=== PATIENT | female | born 1935 | race Caucasian/White ===

== ENCOUNTER → 2016-11-11 | Outpatient (CLI) | payer MEDICARE, BC ==
--- NOTE | 2016-11-11 13:28 | XR ---
EXAMINATION TYPE: XR foot complete RT DATE OF EXAM: 11/11/2016 1:22 PM COMPARISON: NONE HISTORY: Swelling right first toe TECHNIQUE: 3 views are submitted. FINDINGS: Soft tissue swelling is seen overlying the first digit. There is subluxation of the distal phalanx re lative to the proximal phalanx first digit with erosive changes. Findings suspicious for osteomyeliti s. Hammertoe deformities are seen. Areas of cortical thickening involving the second metatarsal are seen . Distal phalanx are difficult to assess due to patient positioning. Calcaneal spurs are noted. IMPRESSION: 1. Subluxation distal phalanx first digit with irregularity involving the articular surface. Correlat e for osteomyelitis.
== END | disposition home or self-care (01) ==
LOC: RADXRMAIN 12:55
PROVIDERS: ATTEND Podiatrist Foot Surgery
DX: S93.101A Unspecified subluxation of right toe(s), initial encounter (principal)

== ENCOUNTER → 2016-12-03 | Outpatient (CLI) | payer MEDICARE, BC ==
--- NOTE | 2016-12-03 20:42 | PN ---
DATE OF SERVICE: 12/03/2016 This patient is a 81-year-old lady who has been followed in the sleep center for treatment of moderate obstructive sleep apnea/hypopnea/hypopnea syndrome. Patient continues to use her CPAP equipment every night for the whole night. Recently she has been told by her daughter that even if she is using her CPAP equipment, she has snoring. Recently in May of 2016 patient had a stroke with changes in her speech. I checked the patient's CPAP unit. It showed that the patient is using equipment practically 100% of the time for more than 4 hours. CPAP pressure is 9 cm of water. Patient's weight has increased from 224 pounds to 240 pounds since her previous CPAP titration. Patient also had episodes of atrial fibrillation which have been converted to normal sinus rhythm. MEDICATIONS: 1. Neurontin. 2. Cozaar. 3. Atenolol. 4. Eliquis. 5. Cymbalta. 6. Clarinex. 7. Metformin. 8. Lipitor. 9. Xanax. 10. Pravastatin. PHYSICAL EXAMINATION: The patient is in no distress. VITAL SIGNS: BP 132/80, HR 92, RR 16. Height 5 feet 6 inches. Weight 240. BMI 38.7. Temperature 97.8. Oxygen saturation at room air 96%. HEENT: PERRLA, EOMI. Evaluation of oropharynx showed tongue protrudes midline; extremely low position of soft palate. NECK: Supple. No JVD. Thyroid is not palpable. LUNGS: Clear to percussion and to auscultation. Good air exchange. No wheezing or rhonchi. HEART: S1, S2 regular. ABDOMEN: Soft and nontender. Bowel sounds are present. No organomegaly appreciated. EXTREMITIES: No clubbing or cyanosis. AUTO COLLISION REPAIR INSTRUCTOR: Awake, alert, and oriented x3. Cranial nerves 2 to 7 intact. There is no fasciculation or atrophy noted. No focal deficits observed. IMPRESSION: 1. Obstructive sleep apnea-hypopnea syndrome. Patient demonstrated 100% compliance with treatment but has snoring with CPAP, according to the family. [place] Sleepiness Scale increased to 13. 2. Obesity; body mass index 38.7. Patient's weight has increased by 16 pounds since previous titration. 3. History of stroke in May 2016 with changes of the speech; practically no residual deficit. 4. Hypertension. 5. History of paroxysmal atrial fibrillation episodes which are considered to be the reason for the stroke. 6. Hyperlipidemia. 7. History of sinusitis. 8. Status post bilateral knee replacement. 9. Diabetes mellitus. 10. Acid reflux. 11. Anxiety. PLAN: 1. We will repeat CPAP titration for re-evaluation of effective CPAP pressure at the present time. 2. Losing weight. 3. Sleep hygiene with regular time in bed for at least 8 hours. 4. No driving if feeling any sleepiness. 5. Prescription for all necessary CPAP supplies. Sincerely, Geo Haney MD, PhD, FAASM. Diplomat of [place], Sleep Medicine Board by [place], [place] [employer]
== END | disposition home or self-care (01) ==
LOC: SLEEP 15:29
PROVIDERS: ATTEND Internal Medicine
DX: G47.33 Obstructive sleep apnea (adult) (pediatric) (principal); E66.9 Obesity, unspecified; Z68.38 Body mass index [BMI] 38.0-38.9, adult; I69.398 Other sequelae of cerebral infarction; I10 Essential (primary) hypertension; R47.89 Other speech disturbances; E78.5 Hyperlipidemia, unspecified; Z87.898 Personal history of other specified conditions; E11.9 Type 2 diabetes mellitus without complications; K21.9 Gastro-esophageal reflux disease without esophagitis; F41.9 Anxiety disorder, unspecified; Z79.899 Other long term (current) drug therapy; Z96.653 Presence of artificial knee joint, bilateral; Z79.84 Long term (current) use of oral hypoglycemic drugs; Z79.01 Long term (current) use of anticoagulants

== ENCOUNTER → 2016-12-30 | Outpatient (CLI) | payer MEDICARE, BC ==
[2016-12-30 12:50] LABS: Cholesterol 243 mg/dL (<200); HDL Cholesterol 46 mg/dL (40-60); Triglycerides 316 mg/dL (<150)
[2016-12-30 16:01] LABS: Hemoglobin A1C 7.3 % (4.2-6.1)
== END | disposition home or self-care (01) ==
LOC: LABWHC1 11:49
PROVIDERS: ATTEND Psychiatry & Neurology Pain Medicine
DX: G45.9 Transient cerebral ischemic attack, unspecified (principal); Z79.891 Long term (current) use of opiate analgesic
CPT/HCPCS: 36415; 80061; 83036

== ENCOUNTER → 2017-03-18 | Outpatient (CLI) | payer MEDICARE, BC ==
--- NOTE | 2017-03-19 14:17 | PN ---
DATE OF SERVICE: 03/18/2017 An 82-year-old lady who has been followed in the Sleep Center for treatment of obstructive sleep apnea-hypopnea syndrome. Recently, patient had CPAP titration and I discussed also the test with her. She received new CPAP unit and using it successfully without significant problem. She reported that with the heated tube she feels better in her nose. I checked CPAP unit. CPAP pressure is 10 cm of water. No significant leak, 12 L/min. Apnea-hypopnea index rating from the ( ) 0.9 only. Usage is 30/30 nights for more than 4 hours, average 8.6 hours. MEDICATIONS: Eliquis, Cozaar, metformin, Neurontin, Cymbalta, Prevacid. During physical exam, patient in no distress. BP 131/82, HR 95, RR 18, weight 240.4, temp 97.6. OROPHARYNX: Extremely low position of soft palate. HEART: S1, S2, irregular. ABDOMEN: Obese. NECK: Supple. No JVD. Thyroid is not palpable. LUNGS: Clear to percussion and to auscultation. Good air exchange. No wheezing or rhonchi. EXTREMITIES: No clubbing or cyanosis. SALES REPRESENTATIVE PRINTING SUPPLIES: Awake, alert and oriented x3. Cranial nerves 2 to 7 intact. There is no fasciculation or atrophy noted. No focal deficits observed. IMPRESSION: 1. Obstructive sleep apnea-hypopnea syndrome, on control with CPAP at 10 cm of water. 2. Atrial fibrillation. 3. Diabetes mellitus. 4. Hypertension. 5. Hyperlipidemia. 6. History of sinusitis. 7. Status post bilateral knee replacement. 8. Periodic limb movements during titration. 9. History of ( ) disorder, no significant out of dream movements at the present time. PLAN: 1. Continue treatment with CPAP every night. 2. Losing weight. 3. Sleep hygiene with regular time in bed for at least 8 hours. 4. No driving if feeling any sleepiness. 5. Prescription for all necessary CPAP supplies. 6. Follow up visit in 10 months. Thank you very much for allowing me to participate in the management of your patient. Sincerely, Geo Haney MD, PhD, FAASM Diplomat of [employer] Sleep Medicine Board by [employer] Medicine Information Systems Supervisor of [facility]
== END | disposition home or self-care (01) ==
LOC: SLEEP 14:19
PROVIDERS: ATTEND Internal Medicine
DX: G47.33 Obstructive sleep apnea (adult) (pediatric) (principal); I48.91 Unspecified atrial fibrillation; E11.9 Type 2 diabetes mellitus without complications; I10 Essential (primary) hypertension; E78.5 Hyperlipidemia, unspecified; G47.61 Periodic limb movement disorder

== ENCOUNTER → 2017-12-31 | Outpatient (CLI) | payer MEDICARE, BC | END | disposition home or self-care (01) | LOC: RADECHMAIN 15:01 | PROVIDERS: ATTEND Internal Medicine | DX: I48.91 Unspecified atrial fibrillation (principal) | CPT/HCPCS: 93225; 93226 ==

== ENCOUNTER 2018-01-11 11:58 | Day surgery (SDC) | payer MEDICARE, BC ==
[2018-01-07 09:25] VITALS: BMI 36.7
[~2018-01-11 11:58] MED LIST: LACTATED RINGERS 1,000 ML IV SCH; LIDOCAINE 1% 20 ML VIAL (10MG/ML) FOR IV START INTRADERMA PRN
[2018-01-11] MEDS: PHENYLEPHRINE 10% OPHTH DROPS 5 ML BTL OP ONE ×3 (13:25→13:43)
[2018-01-11] MEDS: CYCLOPENTOLATE 1% OPHTH SOLN 2 ML BTL OP ONE ×3 (13:28→13:46)
[2018-01-11] MEDS: FLURBIPROFEN 0.03% OPHTH DROPS 2.5 ML BTL OP ONE ×3 (13:31→13:49)
[2018-01-11 13:41] LABS: Glucose,Whole Blood 136 mg/dL (75-99)
[2018-01-11] MEDS ORDERED: LIDOCAINE 1% 20 ML VIAL (10MG/ML) FOR IV START INTRADERMA ONE (13:45)
[2018-01-11 13:46] VITALS: TEMP 97.8
[2018-01-11] MEDS ORDERED: LIDOCAINE 1% INJ 10MG/ML (20 ML MDV) ONE (14:19)
[2018-01-11] MEDS ORDERED: PROPOFOL 10 MG/ML 20 ML VIAL IV ONE (14:19)
[2018-01-11] MEDS ORDERED: HYALURONATE SODIUM INTRAOCULAR 1 EACH SYRINGE (10MG/ML) INTRAOCULA ONE (14:20)
[2018-01-11] MEDS ORDERED: BALANCED SALT IRRIG SOLN COMB2 15 ML IRRIG.SOLN IRRIGATION ONE (14:20)
[2018-01-11] MEDS ORDERED: EPINEPHrine (PF) 0.5 ML in BALANCED SALT IRRIG SOLN COMB2 500 ML IRRIGATION ONE (14:22)
--- NOTE | 2018-01-11 14:40 | P.OP ---
Date of Procedure: 01/11/18 Procedure(s) Performed: PREOPERATIVE DIAGNOSIS: Cataract, right eye. POSTOPERATIVE DIAGNOSIS: Cataract, right eye. OPERATION: Phacoemulsification cataract, right eye. DESCRIPTION OF PROCEDURE: The patient was taken to the preoperative holding area. Intravenous Propofol was given so as to bring about adequate sedation. The following mixture was given for local anesthesia: 5 mL of 2% lidocaine, 5 mL of 0.75% Marcaine, and 1 mL of Wydase. Approximately 4 mL was injected in the retrobulbar space of the surgical eye. Additional 1 mL was then directed to the temporal area of the surgical eye. This was performed to allow adequate neurological block of the facial muscles. The patient was revived and then taken into the operative room. The patient was prepped and draped in the usual sterile manner for the operative eye. A lid speculum was put into position. The conjunctiva was resected back from the limbus in the 12 o'clock position. Bleeding was controlled with electrocautery. A #69 blade was then used and a half-thickness scleral incision approximately 1-mm posterior to the limbus was made on bare sclera. This was shelved in the clear cornea using a crescent knife. Next a 15-degree blade was used to make a stab incision at the 3 o' clock position at the corneolimbal interface. Keratome blade was then used and the superior wound was extended into the anterior chamber. Viscoelastic was injected into the anterior chamber and to maintain its form. Next, a cystotome was used and a continuous anterior capsulotomy was made without difficulty. Hydrodissection using a blunt cannula and BSS was performed. Phaco probe was then employed and a groove extending from 12 to 6 o'clock in the lens was created. A James wand was used through the stab incision so as to perform a divide and conquer technique. Next an irrigation aspiration probe was utilized and any residual cortex was removed from the eye. Again, viscoelastic was injected into the anterior chamber. An Hubert posterior chamber lens implant was placed in the cartridge and injected into the anterior chamber without difficulty. The Jifiti.comey hook was utilized to spin the lens into position and this was again performed without any difficulty. The irrigation and aspiration probe was again employed and any residual viscoelastic was removed from the eye. Then BSS was injected into the limbal stab incision and the anterior chamber re-inflated. The conjunctiva was reapproximated using electrocautery. One drop of 0.25% Timoptic was placed over the corneal along with TobraDex ophthalmic ointment. Two sterile patches and a Cuevas eye shield were taped into position. The patient was transported to the recovery room in stable condition. Pathology: none sent Condition: stable Disposition: same day
[2018-01-11 15:17] LABS: Glucose,Whole Blood 115 mg/dL (75-99)
[2018-01-11 15:43] VITALS: BP 122/64; PULSE 44; RESP 16
[2018-01-11] MEDS ORDERED: GENTAMICIN/PREDNISOL AC OPHTH OINT 3.5GM OPHTHALMIC ONE (23:00)
[2018-01-11] MEDS ORDERED: BUPIVACAINE (PF) 0.75% 5 ML, HYALURONIDASE, HUMAN RECOMB 150 UNIT, LIDOCAINE 2% (PF) 10... MISCELLANE ONE ×3 (23:00)
[2018-01-11] MEDS ORDERED: TIMOLOL 0.5% OPHTH DROPS 5 ML BTL OP ONE (23:00)
== END 2018-01-11 15:56 | disposition home or self-care (01) ==
LOC: OR 11:58
PROVIDERS: ATTEND Ophthalmology
DX: E11.36 Type 2 diabetes mellitus with diabetic cataract (principal); Z79.84 Long term (current) use of oral hypoglycemic drugs; H04.129 Dry eye syndrome of unspecified lacrimal gland; I48.91 Unspecified atrial fibrillation; Z79.01 Long term (current) use of anticoagulants; E78.5 Hyperlipidemia, unspecified; I34.1 Nonrheumatic mitral (valve) prolapse; K21.9 Gastro-esophageal reflux disease without esophagitis; M19.90 Unspecified osteoarthritis, unspecified site; G47.33 Obstructive sleep apnea (adult) (pediatric); Z99.89 Dependence on other enabling machines and devices; Z86.73 Personal history of transient ischemic attack (TIA), and cerebral infarction without residual deficits; Z79.899 Other long term (current) drug therapy
CPT/HCPCS: 66984; V2632; J3470; J2001 ×2; J0171; J2704

== ENCOUNTER 2018-02-08 09:01 | Day surgery (SDC) | payer MEDICARE, BC ==
[2018-02-02 09:46] VITALS: BMI 36.7
[~2018-02-08 09:01] MED LIST changes: +MIDAZOLAM 2 MG/2 ML VIAL IV PRN
[2018-02-08] MEDS: PHENYLEPHRINE 10% OPHTH DROPS 5 ML BTL OP ONE ×3 (11:30→11:36)
[2018-02-08] MEDS: CYCLOPENTOLATE 1% OPHTH SOLN 2 ML BTL OP ONE ×3 (11:39→11:45)
[2018-02-08] MEDS: FLURBIPROFEN 0.03% OPHTH DROPS 2.5 ML BTL OP ONE ×3 (11:48→11:54)
[2018-02-08 11:53] VITALS: RESP 16; TEMP 97.7
[2018-02-08 12:10] LABS: Glucose,Whole Blood 143 mg/dL (75-99)
[2018-02-08] MEDS ORDERED: BALANCED SALT IRRIG SOLN COMB2 15 ML IRRIG.SOLN IRRIGATION ONE (12:20)
[2018-02-08] MEDS ORDERED: HYALURONATE SODIUM INTRAOCULAR 1 EACH SYRINGE (10MG/ML) INTRAOCULA ONE (12:20)
[2018-02-08] MEDS ORDERED: PROPOFOL 10 MG/ML 20 ML VIAL IV ONE (12:23)
--- NOTE | 2018-02-08 12:47 | P.OP ---
Date of Procedure: 02/08/18 Procedure(s) Performed: PREOPERATIVE DIAGNOSIS: Cataract, left eye. POSTOPERATIVE DIAGNOSIS: Cataract, left eye. OPERATION: Phacoemulsification cataract, left eye. DESCRIPTION OF PROCEDURE: The patient was taken to the preoperative holding area. Intravenous Propofol was given so as to bring about adequate sedation. The following mixture was given for local anesthesia: 5 mL of 2% lidocaine, 5 mL of 0.75% Marcaine, and 1 mL of Wydase. Approximately 4 mL was injected in the retrobulbar space of the surgical eye. Additional 1 mL was then directed to the temporal area of the surgical eye. This was performed to allow adequate neurological block of the facial muscles. The patient was revived and then taken into the operative room. The patient was prepped and draped in the usual sterile manner for the operative eye. A lid speculum was put into position. The conjunctiva was resected back from the limbus in the 12 o'clock position. Bleeding was controlled with electrocautery. A #69 blade was then used and a half-thickness scleral incision approximately 1-mm posterior to the limbus was made on bare sclera. This was shelved in the clear cornea using a crescent knife. Next a 15-degree blade was used to make a stab incision at the 3 o' clock position at the corneolimbal interface. Keratome blade was then used and the superior wound was extended into the anterior chamber. Viscoelastic was injected into the anterior chamber and to maintain its form. Next, a cystotome was used and a continuous anterior capsulotomy was made without difficulty. Hydrodissection using a blunt cannula and BSS was performed. Phaco probe was then employed and a groove extending from 12 to 6 o'clock in the lens was created. A James wand was used through the stab incision so as to perform a divide and conquer technique. Next an irrigation aspiration probe was utilized and any residual cortex was removed from the eye. Again, viscoelastic was injected into the anterior chamber. An Hubert posterior chamber lens implant was placed in the cartridge and injected into the anterior chamber without difficulty. The SinServis1st Bankey hook was utilized to spin the lens into position and this was again performed without any difficulty. The irrigation and aspiration probe was again employed and any residual viscoelastic was removed from the eye. Then BSS was injected into the limbal stab incision and the anterior chamber re-inflated. The conjunctiva was reapproximated using electrocautery. One drop of 0.25% Timoptic was placed over the corneal along with TobraDex ophthalmic ointment. Two sterile patches and a Cuevas eye shield were taped into position. The patient was transported to the recovery room in stable condition. Pathology: none sent Condition: stable Disposition: same day
[2018-02-08 13:25] VITALS: BP 131/65; PULSE 67
[2018-02-08] MEDS ORDERED: TIMOLOL 0.5% OPHTH DROPS 5 ML BTL OP ONE (23:00)
[2018-02-08] MEDS ORDERED: GENTAMICIN/PREDNISOL AC OPHTH OINT 3.5GM OPHTHALMIC ONE (23:00)
[2018-02-08] MEDS ORDERED: BUPIVACAINE (PF) 0.75% 5 ML, HYALURONIDASE, HUMAN RECOMB 150 UNIT, LIDOCAINE 2% (PF) 10... MISCELLANE ONE ×3 (23:00)
== END 2018-02-08 13:27 | disposition home or self-care (01) ==
LOC: OR 09:01
PROVIDERS: ATTEND Ophthalmology
DX: E11.36 Type 2 diabetes mellitus with diabetic cataract (principal); H04.129 Dry eye syndrome of unspecified lacrimal gland; Z79.84 Long term (current) use of oral hypoglycemic drugs; M19.90 Unspecified osteoarthritis, unspecified site; I10 Essential (primary) hypertension; E78.5 Hyperlipidemia, unspecified; I48.91 Unspecified atrial fibrillation; Z79.01 Long term (current) use of anticoagulants; I34.1 Nonrheumatic mitral (valve) prolapse; G47.33 Obstructive sleep apnea (adult) (pediatric); Z99.89 Dependence on other enabling machines and devices; Z79.899 Other long term (current) drug therapy; Z88.5 Allergy status to narcotic agent; Z88.0 Allergy status to penicillin; Z88.2 Allergy status to sulfonamides; Z88.8 Allergy status to other drugs, medicaments and biological substances
CPT/HCPCS: 66984; V2632; J3470; J2001; J2704

== ENCOUNTER → 2018-02-22 | Day surgery (SDC) | payer MEDICARE, BC ==
[2018-02-17 12:09] VITALS: BMI 36.7
[~2018-02-22] MED LIST changes: +ALPRAZolam 0.25 MG TAB PO PRN; +ALPRAZolam 0.5 MG TAB PO PRN; +ASPIRIN 325 MG TAB PO STA; +ATORVASTATIN 80 MG TAB PO STA; -LACTATED RINGERS 1,000 ML IV SCH; -LIDOCAINE 1% 20 ML VIAL (10MG/ML) FOR IV START INTRADERMA PRN; -MIDAZOLAM 2 MG/2 ML VIAL IV PRN; +NITROGLYCERIN SL TABS 0.4 MG TAB SUBLINGUAL PRN; +SODIUM CHLORIDE 0.9% 1,000 ML in EMPTY BAG 1 BAG IV ONE
[2018-02-22 08:24] VITALS: BP 131/81; PULSE 70; RESP 16
== END ==
LOC: CATHCVL 07:47
PROVIDERS: ATTEND Internal Medicine Interventional Cardiology
DX: Z53.9 Procedure and treatment not carried out, unspecified reason (principal)

== ENCOUNTER 2018-02-23 06:53 | Day surgery (SDC) | payer MEDICARE, BC ==
[~2018-02-23 06:53] MED LIST changes: -ALPRAZolam 0.25 MG TAB PO PRN; -ALPRAZolam 0.5 MG TAB PO PRN; -ATORVASTATIN 80 MG TAB PO STA; -NITROGLYCERIN SL TABS 0.4 MG TAB SUBLINGUAL PRN
[2018-02-23 07:36] VITALS: RESP 16
[2018-02-23 08:06] LABS: Calcium 9.1 mg/dL (8.4-10.2)
[2018-02-23] MEDS ORDERED: MIDAZOLAM 2 MG/2 ML VIAL ONE (09:16)
[2018-02-23] MEDS ORDERED: VERAPAMIL 2.5 MG/ML 2 ML AMP ONE (09:16)
[2018-02-23] MEDS ORDERED: HEPARIN SODIUM 1,000 UN/ML (10ML VL) ONE (09:17)
[2018-02-23] MEDS ORDERED: MIDAZOLAM 2 MG/2 ML VIAL IVP ONE (09:31)
[2018-02-23] MEDS: VERAPAMIL SYRINGE (5 MG/10 ML) INTRAARTER ONE ×2 (09:34→09:45)
[2018-02-23] MEDS ORDERED: LIDOCAINE 2% SYG (PF) 100 MG/5 ML MISCELLANE ONE (09:34)
[2018-02-23] MEDS ORDERED: HEPARIN SODIUM 1,000 UN/ML (10ML VL) IV ONE (09:35)
[2018-02-23] MEDS ORDERED: IOPAMIDOL-370 125ML BTL INJ ONE (09:45)
[2018-02-23] MEDS ORDERED: RX INFO: IV CONTRAST WAS GIVEN 1 EACH MISC MISCELLANE PRN (09:50)
[2018-02-23] MEDS ORDERED: SODIUM CHLORIDE 0.9% 1,000 ML IV SCH (10:00)
--- NOTE | 2018-02-23 11:05 | LTR ---
February 23, 2018 Re: Virgie Cerrato Dear Atif: Ms. Virgie Cerrato underwent a heart catheterization and that revealed mild nonobstructive disease involving the proximal and mid LAD. I want to thank you for allowing me to participate in her care and please do not hesitate to call if you have any question or concern. Sincerely yours, MD RASHI Cotton / IVAN: [id number] /
--- NOTE | 2018-02-23 11:05 | CC ---
CARDIAC CATHETERIZATION REPORT DATE OF SERVICE: 02/23/2018 PERFORMING PHYSICIAN: Benson Dockery MD, Head Mechanic. PROCEDURE PERFORMED: 1. Selective right and left coronary angiogram. 2. Left heart catheterization. INDICATION: This is a pleasant 83-year-old female patient who was struggling with exertional dyspnea in spite of normal noninvasive testing on her. In view of that, heart catheterization was recommended to rule out any severe underlying coronary artery disease. APPROACH: Right radial artery. COMPLICATION: None. LEVEL OF SEDATION: Moderate with a sedation length of 15 minutes. PROCEDURE DESCRIPTION: After obtaining an informed consent, the patient was brought to the Cardiac Director Law Enforcement. The right radial artery was cannulated using micropuncture technique, the micropuncture wire passed easily, then I placed a 6-Macedonian sheath in the right radial artery. After that, I did selective right and left coronary angiogram using JR4 and JL3.5 catheters. Left heart catheterization was performed using the JR4 catheter which flipped into the LV, then I did pullback across the aortic valve. The procedure was completed without any complication. SELECTIVE CORONARY ANGIOGRAM: 1. The right coronary artery is a large caliber vessel and it is a dominant vessel. The RCA is angiographically normal. It bifurcates distally into PDA and PLV branches, both are angiographically normal. 2. The left main is angiographically normal, it bifurcates into the left circumflex and left anterior descending artery. 3. The left circumflex is a large caliber vessel and it is a nondominant vessel. The proximal circumflex appeared to be angiographically normal, the mid circumflex is normal as well. It gives rise into a large OM branch which seems to be angiographically normal. The circumflex distally is angiographically normal and gives rise into a second OM branch which seems to be angiographically normal and the circumflex continued after that as very small caliber vessel in the AV groove. 4. The LAD, the proximal LAD appeared to have mild disease only. The mid LAD has also mild disease only. The LAD in the midportion gives rise into a diagonal branch which is a large caliber vessel, seems to be angiographically normal and the LAD distally appeared to be angiographically normal. HEMODYNAMICS: The left ventricular end-diastolic pressure was about 12 mmHg and no gradient was identified across the aortic valve. CONCLUSION: Mild nonobstructive coronary artery disease involving the proximal and mid LAD. POSTPROCEDURE MANAGEMENT: Maximize medical treatment and follow up with the patient. RASHI / MINDAN: [id number] /
[2018-02-23 11:45] VITALS: BMI 36.5
[2018-02-23 13:09] VITALS: TEMP 98
[2018-02-23 13:11] VITALS: BP 121/75; PULSE 64
== END 2018-02-23 16:10 | disposition home or self-care (01) ==
LOC: CATHCVL 06:53 → 3OBS 09:47 → CATHCVL 16:10
PROVIDERS: ATTEND Internal Medicine Interventional Cardiology
DX: I25.110 Atherosclerotic heart disease of native coronary artery with unstable angina pectoris (principal); I48.0 Paroxysmal atrial fibrillation; G47.33 Obstructive sleep apnea (adult) (pediatric); I10 Essential (primary) hypertension; E78.00 Pure hypercholesterolemia, unspecified; E11.9 Type 2 diabetes mellitus without complications; I38 Endocarditis, valve unspecified; Z99.89 Dependence on other enabling machines and devices; Z86.73 Personal history of transient ischemic attack (TIA), and cerebral infarction without residual deficits; Z79.01 Long term (current) use of anticoagulants; Z79.84 Long term (current) use of oral hypoglycemic drugs; Z79.899 Other long term (current) drug therapy; Z88.1 Allergy status to other antibiotic agents; Z88.0 Allergy status to penicillin; Z88.2 Allergy status to sulfonamides
CPT/HCPCS: 93458; 80048; C1894; C1769; J2250; J2001; J1644; Q9967

== ENCOUNTER → 2018-03-07 | Outpatient (CLI) | payer MEDICARE, BC | END | disposition home or self-care (01) | LOC: RADECHMAIN 12:24 | PROVIDERS: ATTEND Internal Medicine | DX: I48.91 Unspecified atrial fibrillation (principal); I48.92 Unspecified atrial flutter | CPT/HCPCS: 93270; 93271 ==

== ENCOUNTER → 2018-03-23 | Outpatient (CLI) | payer MEDICARE, BC ==
--- NOTE | 2018-03-23 14:11 | PN ---
PROGRESS NOTE DATE OF SERVICE: 03/23/2018 An 83-year-old lady who has been followed in the Sleep Center for treatment of obstructive sleep apnea-hypopnea syndrome. Patient successfully continued to use her CPAP equipment every night without significant problems. According to daughter, sometimes she has snoring. [place] Sleepiness Scale today is 9, which is in normal range. I checked CPAP unit. CPAP pressure is 10 cm of water, usage is every night, 28/30 nights more than 4 hours. Average usage is 7.4 hours. Leak is 34 L/minute. Apnea- hypopnea index 1.2 for the last month, which is normal range. MEDICATIONS: Eliquis, atenolol, Cymbalta, Neurontin, Cozaar, metformin. PHYSICAL EXAM: Patient in no distress. BP 125/74, HR 87, RR 20, height 5, 7, weight 235, BMI 36.2. Patient lost about 5 pounds of weight since last visit, temperature 98.1 oxygen saturation at room air 96%. OROPHARYNX: Extremely low position of soft palate. ABDOMEN: Slightly obese. EXTREMITIES: 1+ bilateral ankle edema. HEART: S1, S2, regular. Neck Supple, no JVD. Thyroid is not palpable. LUNGS Clear to percussion and to auscultation. Good air exchange. No wheezing or rhonchi. FLIGHT COMMUNICATIONS OPERATOR Awake, alert, and oriented X3. Cranial nerves 2 to 7 intact. There is no fasciculation or atrophy. noted. No focal deficits observed. IMPRESSION: 1. Obstructive sleep apnea-hypopnea syndrome on control with CPAP. Patient demonstrated close to 100% compliance with treatment. 2. Atrial fibrillation. 3. Diabetes mellitus. 4. Hypertension. 5. Hyperlipidemia. 6. History of sinusitis. 7. Status post bilateral knee replacement. 8. 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 Not any abnormal movements at night at the present time. 9. Status post recent basal cell carcinoma removed from the right leg. PLAN: 1. Patient will continue treatment with CPAP every night for the whole night. 2. To continue losing weight. 3. Patient should receive new mask replacement. 4. No driving if feeling any sleepiness. 5. Sleep hygiene with regular time in bed for at least 8 hours. 6. Prescription for all necessary CPAP supplies. 7. I will increase pressure to 11 cm of water with a goal to stop any snoring. Thank you very much for allowing me to participate in the management of your patient. Sincerely, Geo Haney MD, PhD, FAASM Diplomat of [place] [employer] [place] Board of Internal Medicine African Studies Professor of [facility] [place] RASHI / IVAN: [id number] /
== END | disposition home or self-care (01) ==
LOC: SLEEP 13:11
PROVIDERS: ATTEND Internal Medicine
DX: G47.33 Obstructive sleep apnea (adult) (pediatric) (principal); I48.91 Unspecified atrial fibrillation; E11.9 Type 2 diabetes mellitus without complications; I10 Essential (primary) hypertension; E78.5 Hyperlipidemia, unspecified; Z79.02 Long term (current) use of antithrombotics/antiplatelets; Z79.84 Long term (current) use of oral hypoglycemic drugs; Z79.899 Other long term (current) drug therapy; Z99.89 Dependence on other enabling machines and devices; Z96.653 Presence of artificial knee joint, bilateral; Z87.09 Personal history of other diseases of the respiratory system; Z98.890 Other specified postprocedural states; Z85.828 Personal history of other malignant neoplasm of skin

== ENCOUNTER → 2018-06-03 | Outpatient (CLI) | payer MEDICARE, BC ==
[2018-06-03 08:44] LABS: HCT 27.8 % (34.0-46.0); HGB 8.7 gm/dL (11.4-16.0); Hypochromasia Marked; MCH 23.5 pg (25.0-35.0); MCHC 31.3 g/dL (31.0-37.0); MCV 75.2 fL (80.0-100.0); Mean Platelet Volume 8.3; Microcytosis Slight; Platelet Count 238 k/uL (150-450); RDW 15.9 % (11.5-15.5); WBC 7.9 k/uL (3.8-10.6)
[2018-06-03 09:05] LABS: Potassium 5.1 mmol/L (3.5-5.1)
== END ==
LOC: LABPAT 08:23
PROVIDERS: ATTEND Internal Medicine Interventional Cardiology
DX: Z01.812 Encounter for preprocedural laboratory examination (principal); I48.0 Paroxysmal atrial fibrillation; I38 Endocarditis, valve unspecified; G47.33 Obstructive sleep apnea (adult) (pediatric)
CPT/HCPCS: 36415; 80051; 82565; 84520; 85027

== ENCOUNTER → 2018-06-16 | Day surgery (SDC) | payer MEDICARE, BC ==
[2018-06-09 13:42] VITALS: BMI 35.4
[~2018-06-16] MED LIST changes: -ASPIRIN 325 MG TAB PO STA; +IV FLUID CONTINUATION 1,000 ML IV ONE; +PROPOFOL 10 MG/ML 20 ML VIAL IV ONE; +SODIUM CHLORIDE 0.9% 1,000 ML IV SCH; -SODIUM CHLORIDE 0.9% 1,000 ML in EMPTY BAG 1 BAG IV ONE
[2018-06-16] MEDS: BENZOCAINE SPRAY 1 CAN MUCOUS MEM ONE ×2 (08:55→09:00)
[2018-06-16 09:20] LABS: Calcium 9.1 mg/dL (8.4-10.2); Potassium 4.7 mmol/L (3.5-5.1)
[2018-06-16 09:38] VITALS: RESP 16
--- NOTE | 2018-06-16 09:52 | CE ---
CARDIAC ELECTROPHYSIOLOGY REPORT DATE OF SERVICE: June 16, 2018 PERFORMING PHYSICIAN: Benson Dockery MD. PROCEDURE PERFORMED: Cardioversion. INDICATION: The patient is an 83-year-old female patient with symptomatic atrial fibrillation, who underwent a MENDEL earlier today and intracardiac thrombus was ruled out. PROCEDURE DESCRIPTION: After MENDEL was performed and intracardiac thrombus was ruled out, I attempted cardioversion. I attempted cardioversion using 200 joule, 300 joules, and 360 joules, and the patient did not cardiovert to normal sinus mechanism. CONCLUSION: Three attempts of cardioversion of atrial fibrillation to normal sinus mechanism were performed and were unsuccessful. I attempted that using 200 joules, 300 joules, and 360 joules. POSTPROCEDURE MANAGEMENT: Refer the patient to undergo atrial fibrillation ablation again. MMODL / IJN: [id number] /
--- NOTE | 2018-06-16 09:55 | ECHOT ---
TRANSESOPHAGEAL ECHOCARDIOGRAM DATE OF SERVICE: 06/16/2018 PERFORMING PHYSICIAN: Benson Dockery MD. PROCEDURE PERFORMED: Transesophageal echocardiogram. INDICATION: This is a pleasant 83-year-old female patient who was brought today for cardioversion for symptomatic atrial fibrillation. A MENDEL is to rule out any intracardiac thrombus. COMPLICATION: None. LEVEL OF SEDATION: Deep sedation was performed using a propofol with HAND MOLDER and anesthesiologist in the room. PROCEDURE DESCRIPTION: After obtaining an informed consent, explaining the procedure, benefits, risks, complications and alternatives, the patient was brought to the transesophageal echocardiogram suite. A pulse oximetry and heart rate monitors were attached to the patient prior to the procedure. The patient's throat was sprayed using lidocaine locally. Following that, the patient was turned into left lateral position. A bite guard was placed and the patient was then sedated with the above doses of Versed and fentanyl in divided doses. Following that, the transesophageal echocardiogram probe was advanced through the bite guard into the mid esophagus where 2-D echocardiogram images as well as color Doppler images of various cardiac structures were obtained. We evaluated the interatrial septum using 2-D echocardiogram, color Doppler, and contrast study. The procedure was completed. There were no complications. FINDINGS: The left ventricular dimension and systolic function appeared to be within normal limits. The EF is in the low normal actually and is about 50%. The right ventricle is dilated. The left atrium and right atrium are dilated as well. The left atrial appendage appeared to be free from any thrombus. The interatrial septum appeared to be intact without any evidence of shunt. The aortic valve is trileaflet valve without stenosis with moderate insufficiency. The mitral valve seems to be thickened as well with moderate MR. There was moderate to severe tricuspid regurgitation was seen. CONCLUSION: 1. Intact interatrial septum without any evidence of shunt. 2. Normal left atrial appendage without any evidence of thrombus. 3. Low normal left ventricular systolic function with ejection fraction around 50%. 4. Dilated right ventricle with normal function. 5. Moderate biatrial enlargement. 6. Aortic sclerosis without stenosis with moderate insufficiency. 7. Thickened mitral valve leaflets with moderate mitral regurgitation. 8. Moderate tricuspid regurgitation. 9. No evidence of pericardial effusion. MMODL / IJN: [id number] /
[2018-06-16 11:03] VITALS: TEMP 98.2
[2018-06-16 11:45] VITALS: PULSE 60
[2018-06-16 11:47] VITALS: BP 125/64
== END | disposition home or self-care (01) ==
LOC: CATHCVL 07:56
PROVIDERS: ATTEND Internal Medicine Interventional Cardiology
DX: I48.0 Paroxysmal atrial fibrillation (principal); G47.33 Obstructive sleep apnea (adult) (pediatric); I08.3 Combined rheumatic disorders of mitral, aortic and tricuspid valves; I10 Essential (primary) hypertension; E11.40 Type 2 diabetes mellitus with diabetic neuropathy, unspecified; E78.5 Hyperlipidemia, unspecified; J45.909 Unspecified asthma, uncomplicated; Z79.01 Long term (current) use of anticoagulants; Z79.899 Other long term (current) drug therapy; Z79.84 Long term (current) use of oral hypoglycemic drugs; Z88.3 Allergy status to other anti-infective agents; Z88.0 Allergy status to penicillin; Z88.2 Allergy status to sulfonamides; Z99.89 Dependence on other enabling machines and devices; Z86.73 Personal history of transient ischemic attack (TIA), and cerebral infarction without residual deficits
CPT/HCPCS: 93312; 93320; 93325; 92960; 80048; J2704

== ENCOUNTER 2018-08-24 06:38 | Day surgery (SDC) | payer MEDICARE, BC ==
[~2018-08-24 06:38] MED LIST changes: -IV FLUID CONTINUATION 1,000 ML IV ONE; +LACTATED RINGERS 1,000 ML IV SCH; +LIDOCAINE 1% 20 ML VIAL (10MG/ML) FOR IV START INTRADERMA PRN; -PROPOFOL 10 MG/ML 20 ML VIAL IV ONE; -SODIUM CHLORIDE 0.9% 1,000 ML IV SCH
[2018-08-24 07:27] VITALS: TEMP 98.1
[2018-08-24 07:29] LABS: Glucose,Whole Blood 153 mg/dL (75-99)
[2018-08-24] MEDS ORDERED: PROPOFOL 10 MG/ML 20 ML VIAL IV ONE (07:30)
--- NOTE | 2018-08-24 08:24 | P.PCN ---
Date of Procedure: 08/24/18 Procedure(s) Performed: Brief history: Patient is a pleasant 83-year-old white female, scheduled for an elective upper endoscopy as well as colonoscopy as a part of evaluation of iron deficiency anemia. She denies any abdominal pain, nausea vomiting or rectal bleeding. Iron deficiency anemia Procedure performed: Esophagogastroduodenoscopy with biopsy Colonoscopy with biopsy, snare polypectomy and tattooing with Michelle ink and Endo Clip placement Preoperative diagnosis: Anesthesia: MAC Procedure: After informed consent was obtained from the patient was brought into the endoscopy unit and IV sedation was administered by anesthesia under continuous monitoring. Initially upper endoscopy was done. The Olympus GF 160 video endoscope was inserted inserted into the mouth and esophagus intubated without any difficulty and was gradually advanced into the stomach and duodenum and carefully examined. The bulb and second part of the duodenum appeared normal. The scope was then withdrawn into the stomach adequately insufflated with air and upon careful examination the antrum and body, cardia and fundus appeared normal. The scope was then withdrawn into the esophagus. The GE junction was located at 40 cm to the incisors. It appeared regular with no erythema erosions or ulcerations. Rest of the esophagus appeared normal. Patient tolerated the procedure well. At this time the patient continued to remain sedation. Initial digital rectal examination was normal. Olympus CF 160 video colonoscope was then inserted into the rectum and gradually advanced to the cecum without any difficulty. Careful examination was performed as the scope was gradually being withdrawn. The prep was excellent. In the cecum there was a 3 cm broad-based polyp that was removed by piecemeal snare polypectomy and was complete polypectomy accomplished. Endo clips were placed to prevent post-polypectomy bleed. The rest of the cecum, ascending colon, transverse colon appeared normal. In the splenic flexure there was a 3-4 cm polypoid lesion identified suspicious for malignancy and multiple biopsies were done from this area. Passing was performed with Michelle ink the distal margin of the lesion. Rest of the, descending colon, sigmoid colon and rectum appeared normal. Retroflexion was performed in the rectum and no lesions were noted. Patient tolerated the procedure well. Impression: 1. Upper endoscopy revealed antral erosive gastritis 2. Colonoscopy revealed: a) 3-4 cm polypoid lesion in the splenic flexure suspicious for malignancy status post biopsy and tattooing with Michelle ink b) 3 cm broad-based cecal polyp status post piecemeal snare polypectomy with Endo Clip placement Recommendations: Findings of this examination were discussed with the patient as well as her family. She was advised to follow with the biopsy results. She will be seen in office early next week. She was advised to resume leliquis in 2 days
[2018-08-24 08:36] VITALS: RESP 16
[2018-08-24 09:00] VITALS: BP 143/80; PULSE 57
--- NOTE | 2018-08-28 12:12 | CDI ---
Outpatient Documentation Clarification Form Date: 08/28/18 CDS/Lifter Name: Kacey Franklin Phone: If any questions, call Ayanna Guerrero Hot Cell Technician at [phone] Patient Name: Virgie Cerrato Admit Date: 08/24/18 Discharge Date: 08/24/18 ATTENTION: The [facility] Coding Staff appreciate your assistance in clarifying documentation. Please respond to the clarification below the line at the bottom and electronically sign. The [facility] Coding staff will review the response and follow-up if needed. Please note: Queries are made part of the Legal Health Record. If you have any questions, please contact the Hot Cell Technician. Dear Dr. Gonzalez, The Op Reports lists EGD with biopsy as a performed procedure. The Path report also supports that a biopsy was performed, but please note that we are unable to code the procedure based off the Path report. The procedure description of the EGD does not make any mention of a biopsy being performed. Please describe the location (examples are esophagus, gastric, duodenum, etc) and the method by which the biopsy was performed. Biopsies were done from the antrum and duodenum using cold biopsy. Juan Luis HANSON
== END 2018-08-24 09:46 | disposition home or self-care (01) ==
LOC: ORWHC2ENDO 06:38
PROVIDERS: ATTEND Internal Medicine Gastroenterology
DX: C18.5 Malignant neoplasm of splenic flexure (principal); D12.0 Benign neoplasm of cecum; K29.50 Unspecified chronic gastritis without bleeding; K25.9 Gastric ulcer, unspecified as acute or chronic, without hemorrhage or perforation; D50.9 Iron deficiency anemia, unspecified; I48.91 Unspecified atrial fibrillation; I10 Essential (primary) hypertension; E78.5 Hyperlipidemia, unspecified; E11.42 Type 2 diabetes mellitus with diabetic polyneuropathy; G47.33 Obstructive sleep apnea (adult) (pediatric); Z99.89 Dependence on other enabling machines and devices; Z79.01 Long term (current) use of anticoagulants; Z79.84 Long term (current) use of oral hypoglycemic drugs; Z79.899 Other long term (current) drug therapy; Z88.0 Allergy status to penicillin; Z88.2 Allergy status to sulfonamides; Z88.8 Allergy status to other drugs, medicaments and biological substances
CPT/HCPCS: 88305; 45380; 45385; 43239; 45381; J2704; 44404; 45382

== ENCOUNTER → 2018-08-29 | Outpatient (CLI) | payer MEDICARE, BC ==
--- NOTE | 2018-08-29 22:30 | CT ---
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 Delayed images through the kidneys and coronal/sagittal reconstructions perform ed. CT DLP: 1803.6 mGycm Automated exposure control for dose reduction was used. FINDINGS: Heart upper limits of normal in size without pericardial effusion. Lung bases clear without pleural e ffusion. There is a wedge-shaped area of hypervascularity anterior segment 3 left liver lobe which obliterates on delayed kidney images suggestive of vascular shunting. Similar areas present in the right hepatic dome, axial image 13. No definite suspicious liver lesion is identified. No biliary ductal dilatation. Portal venous system is patent. Punctate 3 mm hyperdensity in the gallbladder suggestive of a gallstone. No abnormal gallbladder dist ention. Adrenal glands, spleen, and pancreas appear within normal limits. Indeterminate 9 mm hypodense lesion medial upper pole right kidney may represent a cyst but is too sm all for accurate CT characterization. Six-month follow-up recommended to reassess. Extrarenal pelvis on the right. Punctate nonobstructive 2 mm calculus lower pole left kidney. No dilated small bowel, free fluid, or free air. No mesenteric or retroperitoneal lymphadenopathy. Normal appendix. Oral contrast has progressed to the rectum. Mild diverticular change along the left side of the colon. There is focal mural based. Thickening along the distal transverse colon, axial image 50 which may co rrespond to the patient's reported splenic flecture neoplasm. No mesenteric or retroperitoneal lymphadenopathy. Bladder is nondistended. Uterus surgically absent. Neither ovary is visualized. Multiple pelvic phleb oliths. No abnormal fluid collection the pelvis or pelvic lymphadenopathy. Bones: Mild degenerative changes at the hips. Facet arthropathy throughout. Degenerative disc disease greatest in the lower thoracic spine and thoracolumbar junction region. There is a 1.6 cm lucent les ion within the anterior L2 vertebral body possibly degenerative etiology. IMPRESSION: 1. 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 2. NO SUSPICIOUS LYMPHADENOPATHY. A COUPLE PERIPHERAL AREAS OF HYPERVASCULARITY IN THE LIVER EQUILIBR ATE ON THE DELAYED KIDNEY IMAGES AND ARE SUGGESTIVE OF BENIGN VASCULAR SHUNTING. 3. A 1.6 CM LUCENT LESION IN THE L2 VERTEBRAL BODY POSSIBLY FROM A DEGENERATIVE ETIOLOGY. CONSIDER CO NTRAST ENHANCED LUMBAR SPINE MRI TO FURTHER EVALUATE. WHILE POSSIBLE, METASTATIC DISEASE IS CONSIDERE D LESS LIKELY GIVEN THE LACK OF METASTASES ELSEWHERE IN THE ABDOMEN OR PELVIS. 4. INDETERMINATE 9 MM HYPODENSE RIGHT KIDNEY LESION TOO SMALL TO ACCURATELY CHARACTERIZE. THIS MAY RE PRESENT A CYST. 6 MONTH FOLLOW-UP TO REASSESS.
== END | disposition home or self-care (01) ==
LOC: RADCTMAIN 15:20
PROVIDERS: ATTEND Internal Medicine Gastroenterology
DX: R93.2 Abnormal findings on diagnostic imaging of liver and biliary tract (principal); R93.421 Abnormal radiologic findings on diagnostic imaging of right kidney; C18.5 Malignant neoplasm of splenic flexure
CPT/HCPCS: 82565; 84520; 74177; 36415; Q9967

== ENCOUNTER → 2018-09-22 | Outpatient (CLI) | payer MEDICARE, BC ==
--- NOTE | 2018-09-22 16:02 | CT ---
EXAMINATION TYPE: CT chest w con DATE OF EXAM: 09/22/2018 COMPARISON: HRCT chest 09/10/2010 HISTORY: 83-year-old female with malignant neoplasm of splenic flecture, pre-op colon procedure TECHNIQUE: Contiguous axial scanning of the chest after the administration of 80 mL of Isovue 300. C oronal/sagittal reconstructions performed. CT DLP: 904mGycm. Automatic exposure control utilized for a dose reduction. FINDINGS: Heart is normal size without pericardial effusion. Ascending aorta mildly aneurysmal at 4.1 cm. Mild atherosclerotic arch calcifications with convention al arch vessel branching anatomy. Large caliber to the main right and left pulmonary arteries measuring up to 3.0 cm. Some scattered nonenlarged mediastinal lymph nodes particularly in the AP window are unchanged. No th oracic lymphadenopathy by CT size criteria. Evaluation of the lungs shows some minimal biapical pleural parenchymal scarring and strandy areas of atelectasis are present. No consolidation or pleural effusion. No suspicious pulmonary nodule or mas s. Punctate 2 mm superior segment left lower lobe pulmonary nodule, axial image 22 and medial right u pper lobe pulmonary nodule, axial image 12 of questionable clinical significance. Visualized upper abdomen shows nonobstructive 4 mm left renal calculus. Bones: A 1.6 cm lucent lesion redemonstrated within the L2 vertebral body as described on the patient 's CT abdomen from 10/30/2017. Fatty matrix hemangioma within the T9 vertebral body. Moderate degenera tive disc disease lower thoracic spine. IMPRESSION: 1. A couple punctate 2 mm pulmonary nodules of questionable clinical significance. No definite suspic ious pulmonary nodule. No acute pulmonary process. 2. Mildly aneurysmal ascending aorta (4.1 cm) and pulmonary arterial hypertension. 3. Redemonstrated 1.6 cm lucent lesion within the L2 vertebral body. Refer to CT abdomen pelvis repor t from 08/29/2018.
== END ==
LOC: RADCTMAIN 13:30
PROVIDERS: ATTEND Surgery
DX: I27.21 Secondary pulmonary arterial hypertension (principal); M79.89 Other specified soft tissue disorders; C18.5 Malignant neoplasm of splenic flexure; R91.8 Other nonspecific abnormal finding of lung field
CPT/HCPCS: 82565; 84520; 71260; 36415; Q9967

== ENCOUNTER 2019-11-18 11:53 | Emergency (ER) | payer MEDICARE, BC ==
[2019-11-18 12:08] VITALS: BP 111/73; PULSE 86; RESP 20; TEMP 97.4
[2019-11-18] MEDS ORDERED: LIDOCAINE 5% PATCH TOPICAL SCH (13:00)
[2019-11-18 13:17] LABS: Basophils % (A) 0 %; Eosinophils # (A) 0.2 k/uL (0-0.7); Eosinophils % (A) 3 %; HCT 43.6 % (34.0-46.0); Lymphocytes # (A) 1.9 k/uL (1.0-4.8); Lymphocytes % (A) 22 %; MCH 31.2 pg (25.0-35.0); MCHC 34.5 g/dL (31.0-37.0); MCV 90.5 fL (80.0-100.0); Mean Platelet Volume 7.9; Monocytes # (A) 0.4 k/uL (0-1.0); Monocytes % (A) 4 %; Neutrophils % (A) 69 %; Platelet Count 202 k/uL (150-450); RBC 4.81 m/uL (3.80-5.40); RDW 12.8 % (11.5-15.5); WBC 8.7 k/uL (3.8-10.6)
[2019-11-18 13:31] LABS: Albumin 4.2 g/dL (3.5-5.0); Calcium 10.6 mg/dL (8.4-10.2); Potassium 4.9 mmol/L (3.5-5.1); Total Bilirubin 0.5 mg/dL (0.2-1.3); Total Protein 7.5 g/dL (6.3-8.2)
--- NOTE | 2019-11-18 13:32 | ED ---
Abdominal Pain HPI - General Chief Complaint: Abdominal Pain Stated Complaint: Side/Lower Back/Toe/Abd Pain Time Seen by Provider: 11/18/19 12:20 Source: patient Mode of arrival: ambulatory Limitations: physical limitation - History of Present Illness Initial Comments: The patient is an 84-year-old female with past medical history of atrial fibrillation on [place], diabetes who presents emergency room with reported right-sided flank pain. She states the symptoms started on Wednesday. She states that she was attempting to stand up from a sitting position. She was twisting at the same time she had instant pain in her right side. She states the pain is reproducible with palpation and with movement. She has been taking Vadim at home for pain however she states that this does upset her stomach. She denies any changes in her urination to include dysuria, hematuria or difficulty voiding. Denies any changes in her bowel movements include diarrhea, constipation, melanotic stools or hematochezia. No fevers or chills. Denies any vaginal bleeding or discharge. No chest pain or shortness of breath. She is concerned for muscle strain however that should get it evaluated. She was placed on clindamycin on Wednesday as well by her primary care office. She did have a callus to her right lower extremity which she attempted to cut off with scissors created a large incision. She was seen initially place her on antibiotics as prophylaxis. She was sent to follow up with the wound clinic on Wednesday. Patient denies any foot or leg pain. No current bleeding from the site at this time. Denies history of kidney stones. No other alleviating, Perceptin or modifying factors - Related Data Home Medications Medication Instructions Recorded Confirmed Gabapentin 100 mg PO TID 06/11/16 08/24/18 Lansoprazole [Prevacid] 15 mg PO MOWEFR PRN 11/18/16 08/24/18 Losartan [Cozaar] 25 mg PO QAM 11/18/16 08/24/18 Desloratadine [Clarinex] 5 mg PO HS 08/18/17 08/24/18 Rosuvastatin Calcium [Crestor] 10 mg PO HS 08/18/17 08/24/18 Diltiazem HCl [Cartia Xt] 120 mg PO QAM 02/02/18 08/24/18 DULoxetine HCL [Cymbalta] 60 mg PO PC-SUPPER 06/09/18 08/24/18 metFORMIN HCL [Glucophage] 500 mg PO 1900 06/09/18 08/24/18 Albuterol Inhaler [Ventolin Hfa 1 puff INHALATION DIRECTED 08/22/18 08/24/18 Inhaler] Ferrous Sulfate [Slow Fe] 1 tab PO DAILY 08/22/18 08/24/18 Previous Rx's Medication Instructions Recorded Apixaban [Eliquis] 5 mg PO BID #60 tab 06/15/16 Atenolol [Tenormin] 50 mg PO BID #60 tab 06/15/16 Cephalexin [Keflex] 500 mg PO Q12HR 10 Days #20 cap 11/18/19 Lidocaine 5% Patch [Lidoderm 5% 1 patch TOPICAL DAILY #25 patch 11/18/19 Patch] Allergies Allergy/AdvReac Type Severity Reaction Status Date / Time atorvastatin [From Lipitor] Allergy Unknown Verified 11/18/19 12:07 hydrocodone [From Lortab] Allergy Hallucinati Verified 11/18/19 12:07 ons levofloxacin [From Levaquin] Allergy Rash/Hives Verified 11/18/19 12:07 nitrofurantoin Allergy Rash/Hives Verified 11/18/19 12:07 [From Macrobid] Penicillins Allergy Unknown Verified 11/18/19 12:07 Childhood Sulfa (Sulfonamide Allergy Rash/Hives Verified 11/18/19 12:07 Antibiotics) sulfamethoxazole Allergy Rash/Hives Verified 11/18/19 12:07 [From Bactrim] trimethoprim [From Bactrim] Allergy Rash/Hives Verified 11/18/19 12:07 Review of Systems ROS Statement: Those systems with pertinent positive or pertinent negative responses have been documented in the HPI. ROS Other: All systems not noted in ROS Statement are negative. Past Medical History Past Medical History: Atrial Fibrillation, Diabetes Mellitus, Hyperlipidemia, Hypertension, Mitral Valve Prolapse (MVP), Sleep Apnea/CPAP/BIPAP Additional Past Medical History / Comment(s): CURRENT: EXHAUSTED, LOW HGB. Left eye cataract, neuropathy, chronic bronchitis, uses cpap History of Any Multi-Drug Resistant Organisms: None Reported Past Surgical History: Cardiac Ablation, Orthopedic Surgery Additional Past Surgical History / Comment(s): tuan cataracts . TOTAL BILATERAL KNEES. Past Anesthesia/Blood Transfusion Reactions: Previous Problems w/ Anesthesia Additional Past Anesthesia/Blood Transfusion Reaction / Comment(s): slow to wake up from anesthesia Past Psychological History: No Psychological Hx Reported Smoking Status: Former smoker Past Alcohol Use History: None Reported Past Drug Use History: None Reported - Past Family History Mother Family Medical History: No Reported History Additional Family Medical History / Comment(s): . Father Family Medical History: Myocardial Infarction (PR) General Exam Limitations: physical limitation Course Vital Signs 11/18/19 12:05 Temperature 97.4 F L Pulse Rate 86 Respiratory 20 Rate Blood Pressure 111/73 O2 Sat by Pulse 98 Oximetry Medical Decision Making - Medical Decision Making Upon arrival the patient was placed into room 4. Thorough history and physical exam was performed. The patient does have reproducible right-sided flank pain with palpation and movement therefore did order a Lidoderm patch for the patient. Recommend laboratory studies and a CT of the patient's abdomen. Laboratory studies demonstrated a lactic acid 2.3. Sugar is elevated at 313. Patient states that this is a normal blood sugar for her. She is given a 500 mL bolus of normal saline. Lab studies demonstrate 4+ glucose, trace blood, moderate leukocyte esterase, 8 red blood cells and 14 white blood cells. This was a clean-catch specimen. CT of the abdomen and pelvis demonstrates no signs of acute abdomen. Nonobstructing left renal Service. He did reevaluate patient. Admits to improvement with the Lidoderm patch. I discussed diagnosis, differential treatment options. I did recommend treating the patient because of her abnormal UA. He will be sent for culture. The patient did agree to changing her antibiotics to Keflex to cover for cellulitis of her right foot and for her abnormal UA. She is to follow up with her primary care doctor to have repeat urine. I also wrote her prescription for Lidoderm patches. Return to the emergency for any new or worsening symptoms. Patient did agree to the treatment plan was discharged home to patient - Lab Data Result diagrams: 11/18/19 13:00 11/18/19 13:00 Lab Results 11/18/19 11/18/19 11/18/19 Range/Units 13:00 13:00 13:00 WBC 8.7 (3.8-10.6) k/uL RBC 4.81 (3.80-5.40) m/uL Hgb 15.0 (11.4-16.0) gm/dL Hct 43.6 (34.0-46.0) % MCV 90.5 (80.0-100.0) fL MCH 31.2 (25.0-35.0) pg MCHC 34.5 (31.0-37.0) g/dL RDW 12.8 (11.5-15.5) % Plt Count 202 (150-450) k/uL Neutrophils % 69 % Lymphocytes % 22 % Monocytes % 4 % Eosinophils % 3 % Basophils % 0 % Neutrophils # 6.0 (1.3-7.7) k/uL Lymphocytes # 1.9 (1.0-4.8) k/uL Monocytes # 0.4 (0-1.0) k/uL Eosinophils # 0.2 (0-0.7) k/uL Basophils # 0.0 (0-0.2) k/uL Sodium 133 L (137-145) mmol/L Potassium 4.9 (3.5-5.1) mmol/L Chloride 96 L (98-107) mmol/L Carbon Dioxide 26 (22-30) mmol/L Anion Gap 11 mmol/L BUN 27 H (7-17) mg/dL Creatinine 1.02 (0.52-1.04) mg/dL Est GFR (CKD-EPI)AfAm 60 (>60 ml/min/1.73 sqM) Est GFR (CKD-EPI)NonAf 52 (>60 ml/min/1.73 sqM) Glucose 313 H (74-99) mg/dL Lactic Ac Sepsis Rflx Plasma Lactic Acid Zack 2.3 H* (0.7-2.0) mmol/L Calcium 10.6 H (8.4-10.2) mg/dL Total Bilirubin 0.5 (0.2-1.3) mg/dL AST 37 H (14-36) U/L ALT 26 (4-34) U/L Alkaline Phosphatase 62 (38-126) U/L Total Protein 7.5 (6.3-8.2) g/dL Albumin 4.2 (3.5-5.0) g/dL Lipase 176 (23-300) U/L Urine Color Urine Appearance (Clear) Urine pH (5.0-8.0) Ur Specific [place] (1.001-1.035) Urine Protein (Negative) Urine Glucose (UA) (Negative) Urine Ketones (Negative) Urine Blood (Negative) Urine Nitrite (Negative) Urine Bilirubin (Negative) Urine Urobilinogen (<2.0) mg/dL Ur Leukocyte Esterase (Negative) Urine RBC (0-5) /hpf Urine WBC (0-5) /hpf Ur Squamous Epith Cells (0-4) /hpf 11/18/19 11/18/19 Range/Units 13:00 13:27 WBC (3.8-10.6) k/uL RBC (3.80-5.40) m/uL Hgb (11.4-16.0) gm/dL Hct (34.0-46.0) % MCV (80.0-100.0) fL MCH (25.0-35.0) pg MCHC (31.0-37.0) g/dL RDW (11.5-15.5) % Plt Count (150-450) k/uL Neutrophils % % Lymphocytes % % Monocytes % % Eosinophils % % Basophils % % Neutrophils # (1.3-7.7) k/uL Lymphocytes # (1.0-4.8) k/uL Monocytes # (0-1.0) k/uL Eosinophils # (0-0.7) k/uL Basophils # (0-0.2) k/uL Sodium (137-145) mmol/L Potassium (3.5-5.1) mmol/L Chloride (98-107) mmol/L Carbon Dioxide (22-30) mmol/L Anion Gap mmol/L BUN (7-17) mg/dL Creatinine (0.52-1.04) mg/dL Est GFR (CKD-EPI)AfAm (>60 ml/min/1.73 sqM) Est GFR (CKD-EPI)NonAf (>60 ml/min/1.73 sqM) Glucose (74-99) mg/dL Lactic Ac Sepsis Rflx Y Plasma Lactic Acid Zack (0.7-2.0) mmol/L Calcium (8.4-10.2) mg/dL Total Bilirubin (0.2-1.3) mg/dL AST (14-36) U/L ALT (4-34) U/L Alkaline Phosphatase (38-126) U/L Total Protein (6.3-8.2) g/dL Albumin (3.5-5.0) g/dL Lipase (23-300) U/L Urine Color Yellow Urine Appearance Clear (Clear) Urine pH 6.0 (5.0-8.0) Ur Specific [place] 1.015 (1.001-1.035) Urine Protein Trace H (Negative) Urine Glucose (UA) 4+ H (Negative) Urine Ketones Negative (Negative) Urine Blood Trace H (Negative) Urine Nitrite Negative (Negative) Urine Bilirubin Negative (Negative) Urine Urobilinogen <2.0 (<2.0) mg/dL Ur Leukocyte Esterase Moderate H (Negative) Urine RBC 8 H (0-5) /hpf Urine WBC 14 H (0-5) /hpf Ur Squamous Epith Cells 2 (0-4) /hpf - EKG Data EKG Comments: EKG demonstrates A. fib with a controlled ventricular rate of 74. QRS 72. QTC of 426. No acute ST segment elevations or depressions concerning for ischemic changes Disposition Clinical Impression: Right flank pain, Abnormal urinalysis, Wound of right foot Disposition: HOME SELF-CARE Condition: Stable Instructions (If sedation given, give patient instructions): Flank Pain (ED) Additional Instructions: Please follow up with your primary care doctor in 2-4 days for reevaluation. I do recommend a repeat urine specimen to ensure that your urine has cleared up. You can continue to take Motrin and Tylenol for pain. Return to the emergency department for any new or worsening symptoms Prescriptions: Cephalexin [Keflex] 500 mg PO Q12HR 10 Days #20 cap Lidocaine 5% Patch [Lidoderm 5% Patch] 1 patch TOPICAL DAILY #25 patch Is patient prescribed a controlled substance at d/c from ED?: No Referrals: Atif Sinclair MD [Primary Care Provider] - 1-2 days Time of Disposition: 15:28
[2019-11-18 13:35] LABS: Appearance,Urine Clear (Clear); Bilirubin,Urine Negative (Negative); Blood,Urine Trace (Negative); Color,Urine Yellow; Glucose,Urine (UA) 4+ (Negative); Ketones,Urine Negative (Negative); Leukocyte Esterase,Urine Moderate (Negative); Nitrite,Urine Negative (Negative); Protein,Urine Trace (Negative); RBC,Urine 8 /hpf (0-5); Specific Gravity,Urine 1.015 (1.001-1.035); Squamous Epithelial Cell,Urine 2 /hpf (0-4); Urobilinogen,Urine <2.0 mg/dL (<2.0); WBC,Urine 14 /hpf (0-5)
[2019-11-18] MEDS ORDERED: SODIUM CHLORIDE 0.9% 1,000 ML IV ONE (14:22)
--- NOTE | 2019-11-18 14:29 | CT ---
EXAMINATION TYPE: CT abdomen pelvis w con DATE OF EXAM: 11/18/2019 COMPARISON: None HISTORY: Right sided abdominal and flank. CT DLP: 1907.6 mGycm Automated exposure control for dose reduction was used. CONTRAST: Performed with IV Contrast, patient injected with 80 mL of Isovue 300. Liver shows no focal defect. Spleen and pancreas appear normal. There is minimal linear density willian edgar right lower lobe consistent with scarring and subsegmental atelectasis unchanged. Heart size is normal. There is no pericardial effusion. There is no pleural effusion. Gallbladder is contracted. The bile ducts are not dilated. There is no pancreatic mass. There is no adrenal mass. Stomach is intact. There is mild symmetric renal cortical atrophy. There is no hydronephrosis. There is 3 mm calculus interpolar left kidney. There is 1 cm cyst upper pole righ t kidney unchanged. Ureters are not dilated. There is no retroperitoneal adenopathy. Bladder distends smoothly. There is no inguinal hernia. There is no free fluid in the pelvis. There is no mesenteric edema. There is no ascites or free air. There is no sign of a bowel obstruction. There are surgical c lips at the splenic flexure of the colon. There is no evidence of a pelvic mass. Appendix is posterio r and appears normal. Lumbar vertebra have normal alignment. There is minor spur formation. There is no compression fractur e. There is hypodense rounded area anterior aspect of the L2 vertebral body unchanged. This is probab ly a hemangioma. There is hemangioma of T9 vertebral body with coarse trabecula. IMPRESSION: Previous surgery. No sign of acute abdomen and pelvis. Nonobstructing left renal calculus. No adverse change compared to old exam. I do not see a cause for right flank pain..
[2019-11-18] MEDS ORDERED: cefTRIAXone IN SWFI 1,000 MG/10 ML SYRINGE IVP STA (15:18)
== END 2019-11-18 15:40 | disposition home or self-care (01) ==
LOC: EC 11:53
DX: R10.9 Unspecified abdominal pain (principal); R82.90 Unspecified abnormal findings in urine; S91.301A Unspecified open wound, right foot, initial encounter; I48.91 Unspecified atrial fibrillation; E78.5 Hyperlipidemia, unspecified; I10 Essential (primary) hypertension; G47.30 Sleep apnea, unspecified; E11.40 Type 2 diabetes mellitus with diabetic neuropathy, unspecified; E11.36 Type 2 diabetes mellitus with diabetic cataract; H26.9 Unspecified cataract; J42 Unspecified chronic bronchitis; Z79.84 Long term (current) use of oral hypoglycemic drugs; Z79.899 Other long term (current) drug therapy; Z88.8 Allergy status to other drugs, medicaments and biological substances; Z88.5 Allergy status to narcotic agent; Z88.1 Allergy status to other antibiotic agents; Z88.0 Allergy status to penicillin; Z88.2 Allergy status to sulfonamides; Z99.89 Dependence on other enabling machines and devices; Z87.891 Personal history of nicotine dependence; X58.XXXA Exposure to other specified factors, initial encounter
CPT/HCPCS: 36415; 93005; 80053; 83605; 83690; 85025; 81001; 87086; 74177; 99284; 96360; Q9967

== ENCOUNTER → 2020-08-01 | Outpatient (CLI) | payer MEDICARE, BC ==
--- NOTE | 2020-08-01 17:04 | SFUN ---
SLEEP CENTER FOLLOW UP NOTE DATE OF SERVICE: 08/01/2020 This patient is an 85-year-old lady who has been followed in Sleep Center for treatment of obstructive sleep apnea-hypopnea syndrome. The patient is successfully continuing to use her CPAP equipment every night. She does not have complaints related to the machine fitting or humidification. Murray Sleepiness Scale is slightly increased at 12. I checked her CPAP unit. Usage is 29/30 nights for more than 4 hours. CPAP pressure is 11 cm of water. Leak is borderline at 23 L/minute. Apnea-hypopnea index is only 1.9, which is totally normal. MEDICATIONS: 1. Glipizide 5 mg one tablet per day. 2. Rybelsus 3 mg once a day. 3. Cartia 120 mg once a day. 4. Atenolol 50 mg twice a day. 5. Neurontin 100 mg 3 times a day. 6. Eliquis 5 mg twice a day. 7. Lasix 20 mg once a day. 8. Metformin 500 mg twice a day. 9. Crestor 10 mg once a day. PHYSICAL EXAMINATION: GENERAL: A pleasant patient in no distress. VITAL SIGNS: BP 125/76, HR 62, RR 15, height 5 feet 7-1/2 inches, weight 226 pounds, BMI 34.7, temperature 97.8, oxygen saturation at room air 95%. HEENT: PERRLA, EOMI. Evaluation of oropharynx showed tongue protrudes midline. Extremely low position of soft palate. NECK: Supple. No JVD. Thyroid is not palpable. LUNGS: Clear to percussion and to auscultation. Good air exchange. No wheezing or rhonchi. HEART: S1, S2 with some irregularities. ABDOMEN: Soft, nontender. No organomegaly. Bowel sounds are heard in all four quadrants. EXTREMITIES: No clubbing or cyanosis. INSULATION WORKER: Awake, alert, and oriented X3. Cranial nerves 2 to 7 intact. There is no fasciculation or atrophy. noted. No focal deficits observed. IMPRESSION: 1. Obstructive sleep apnea-hypopnea syndrome. Patient demonstrated 100% compliance with treatment, benefitting from treatment. Normal respiration on CPAP. 2. History of atrial fibrillation. 3. Diabetes mellitus. 4. Hypertension. 5. Hyperlipidemia. 6. History of sinusitis. 7. Status post bilateral knee replacement. 8. 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 No recent episodes. 9. Status post basal cell carcinoma removed from the right leg. PLAN: 1. Patient will continue to use PAP equipment every night for the whole night. 2. Sleep hygiene with regular time in bed for at least 7-1/2 to 8 hours. 3. Precautions related to driving. No driving if feeling sleepiness. 4. I will maintain all necessary prescription for PAP supplies including mask, tube, filters. 5. Watching weight. 6. No driving if feeling sleepiness. 7. Follow-up visit in 6 months or earlier if patient has any problems. Thank you very much for allowing me to participate in the management of your patient. Sincerely, Geo Haney MD, PhD, FAASM Diplomat of [place] [employer] [place] [employer] Salesperson of [facility] [place] RASHI / IVAN: [id number] /
== END | disposition home or self-care (01) ==
LOC: SLEEP 09:56
PROVIDERS: ATTEND Internal Medicine
DX: G47.33 Obstructive sleep apnea (adult) (pediatric) (principal); Z86.79 Personal history of other diseases of the circulatory system; E11.9 Type 2 diabetes mellitus without complications; E78.5 Hyperlipidemia, unspecified; I10 Essential (primary) hypertension; Z87.898 Personal history of other specified conditions; Z96.653 Presence of artificial knee joint, bilateral; Z98.890 Other specified postprocedural states; Z79.899 Other long term (current) drug therapy; Z79.01 Long term (current) use of anticoagulants; Z79.84 Long term (current) use of oral hypoglycemic drugs; Z99.89 Dependence on other enabling machines and devices

== ENCOUNTER → 2021-02-28 | Outpatient (CLI) | payer MEDICARE, BC ==
[2021-02-28 08:45] LABS: Basophils # (A) 0.1 k/uL (0-0.2); Basophils % (A) 1 %; Eosinophils # (A) 0.2 k/uL (0-0.7); Eosinophils % (A) 3 %; HGB 14.9 gm/dL (11.4-16.0); Lymphocytes # (A) 1.8 k/uL (1.0-4.8); Lymphocytes % (A) 20 %; MCH 31.5 pg (25.0-35.0); MCHC 33.8 g/dL (31.0-37.0); MCV 93.1 fL (80.0-100.0); Mean Platelet Volume 8.5; Monocytes # (A) 0.6 k/uL (0-1.0); Monocytes % (A) 6 %; Neutrophils # (A) 6.3 k/uL (1.3-7.7); Neutrophils % (A) 69 %; Platelet Count 218 k/uL (150-450); RBC 4.73 m/uL (3.80-5.40); RDW 12.5 % (11.5-15.5); WBC 9.1 k/uL (3.8-10.6)
[2021-02-28 08:52] LABS: Albumin 4.6 g/dL (3.5-5.0); Calcium 9.9 mg/dL (8.4-10.2); Magnesium 1.2 mg/dL (1.6-2.3); Potassium 4.4 mmol/L (3.5-5.1); Total Bilirubin 0.8 mg/dL (0.2-1.3); Total Protein 7.6 g/dL (6.3-8.2)
[2021-02-28 12:33] LABS: Chol/HDL Ratio 3.92; LDL Cholesterol,Calculated 56.8 mg/dL (0.0-131.0); VLDL Calculation 51.2 mg/dL (5.00-40.00)
== END | disposition home or self-care (01) ==
LOC: RADCTMAIN 07:43
PROVIDERS: ATTEND Internal Medicine Interventional Cardiology
DX: Z53.9 Procedure and treatment not carried out, unspecified reason (principal)
CPT/HCPCS: 80053; 80061; 83735; 84443; 84481; 85025

== ENCOUNTER → 2021-03-01 | Outpatient (CLI) | payer MEDICARE, BC ==
--- NOTE | 2021-03-02 06:43 | CT ---
EXAMINATION TYPE: CT ChestAbdPelvis wo con DATE OF EXAM: 03/01/2021 COMPARISON: Chest CT September 22, 20192018. CT abdomen and pelvis November 18, 2019 HISTORY: Chest/abdominal mass CT DLP: 1526 mGycm. Automated Exposure Control for Dose Reduction was Utilized. TECHNIQUE: CT scan of the thorax, abdomen and pelvis is performed without oral or IV contrast. FINDINGS: LUNGS: The lungs remain grossly clear, there is no concerning greater than 4 mm parenchymal mass or n odule identified. There is no pleural effusion or pneumothorax seen bilaterally. Slightly elevated left hemidiaphragm. The tracheobronchial tree is patent. MEDIASTINUM: Lack of IV contrast limits evaluation for thoracic adenopathy. No greater than 1 cm medi astinal lymph nodes. No cardiomegaly. No pericardial effusion is seen. Coronary artery calcificatio n redemonstrated. Enlarged pulmonary arteries suggesting underlying pulmonary artery hypertension red emonstrated. Ascending aortic aneurysm up to 4.5 cm current study. LIVER/GB: Contracted gallbladder with tiny dependent hyperdense gallstone. Visualized liver heterogen eously hypodense consistent with fatty infiltration. Liver size stable and upper limits of normal. PANCREAS: No significant abnormality is seen. SPLEEN: No significant abnormality is seen. ADRENALS: No significant abnormality is seen. KIDNEYS: Persistent mild right-sided hydronephrosis. No hydroureter. No renal calculi identified bila terally on current study. BOWEL: No suspicious small or large bowel dilatation. Surgical sutures distal transverse colon level redemonstrated. Normal-appearing appendix from cecum right lower quadrant GENITAL ORGANS: Uterus surgically absent. Scattered bilateral pelvic phleboliths. LYMPH NODES: No greater than 1cm abdominal or pelvic lymph nodes are appreciated. OSSEOUS STRUCTURES: Moderate axial joint space loss both hips. Multilevel facet arthropathy in the avel mbar spine OTHER: Mild to moderate calcified plaque in the aorta extends into branch vessels. IMPRESSION: Postsurgical change distal transverse colon level redemonstrated. No suspicious new mass or adenopathy. Persistent mild right-sided hydronephrosis without hydroureter, possible UPJ strictur e or stenosis. No renal calculi identified on current study.
== END | disposition home or self-care (01) ==
LOC: RADCTMAIN 15:14
PROVIDERS: ATTEND Internal Medicine Interventional Cardiology
DX: N13.30 Unspecified hydronephrosis (principal); Z98.890 Other specified postprocedural states
CPT/HCPCS: 71250; 74176

== ENCOUNTER → 2021-05-22 | Outpatient (CLI) | payer MEDICARE, BC ==
--- NOTE | 2021-05-22 20:29 | SFUN ---
SLEEP CENTER FOLLOW UP NOTE DATE OF SERVICE: 05/22/2021 86-year-old lady has been followed in Sleep Center for treatment of obstructive sleep apnea-hypopnea syndrome. The patient continues to use her CPAP equipment every night for the whole night. Has slight discomfort in the skin where her mask touches the skin. She is using a fullface AirFit mask. [place] Sleepiness Scale today is 12, which is slightly above normal. I checked her CPAP unit. Pressure is 11 cm of water. Usage is 29/30 nights for more than 4 hours which is good compliance. Average usage 7.9 hours per night. Leak is high at 43 L/minute but apnea-hypopnea index is totally perfect only 1.4. CURRENT MEDICATIONS: Lisinopril 25 mg once a day, 3 mg once a day, glipizide 5 mg twice a day half of the pill, metformin 500 mg twice a day, 120 mg once a day, atenolol 50 mg twice a day, Lasix 20 mg once a day, Eliquis 5 mg twice a day, Neurontin 10 mg 3 times a day, Crestor 10 mg once a day. PHYSICAL EXAMINATION: GENERAL: Patient in no distress. BP 112/75, HR 72, RR 18, height 5 feet and 7 inches, weight 224 pounds which is 2 pounds less than during previous visit. Oxygen saturation at room air 96%. Temperature 97.2. Oropharynx extremely low position of soft palate, Mallampati 4. NECK: Supple, no JVD. Thyroid is not palpable. LUNGS: Clear to percussion and to auscultation. Good air exchange. No wheezing or rhonchi. HEART: S1, S2 regular. No murmurs, gallops, or rubs. ABDOMEN: Slightly obese. Soft and nontender. Bowel sounds are present. No organomegaly appreciated. EXTREMITIES: No clubbing or cyanosis. TELEVISION CAMERAMAN: Awake, alert, and oriented X3. Cranial nerves 2 to 7 intact. There is no fasciculation or atrophy. noted. No focal deficits observed. IMPRESSION: 1. Obstructive sleep apnea-hypopnea syndrome. Patient demonstrated great compliance with treatment and benefitting from treatment. Normal respiration on CPAP. 2. History of atrial fibrillation. 3. Diabetes mellitus. 4. Hypertension. 5. Hyperlipidemia. 6. History of sinusitis. 7. Status post bilateral knee replacement. 8. 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 9. Status post basal cell CA removed from the right leg. PLAN: 1. Prescription for liner under the mask to prevent any irritation from the skin. 2. Patient will continue to use PAP equipment every night for the whole night. 3. Sleep hygiene with regular time in bed for at least 7-1/2 to 8 hours. 4. Precautions related to driving. No driving if feeling sleepiness. 5. I will maintain all necessary prescription for PAP supplies including mask, tube, filters. 6. Watching weight. 7. Follow-up visit in 6 months or earlier if patient has any problems. Thank you very much for allowing me to participate in management of your patient. Sincerely, Geo Haney MD, PhD, FAASM Diplomat of [employer] Sleep Medicine Board of [employer] Box Office Manager of [facility] [place] MMODL / MINDAN: [id number] /
== END ==
LOC: SLEEP 13:01
PROVIDERS: ATTEND Internal Medicine
DX: G47.33 Obstructive sleep apnea (adult) (pediatric) (principal); I48.91 Unspecified atrial fibrillation; E11.9 Type 2 diabetes mellitus without complications; I10 Essential (primary) hypertension; E78.5 Hyperlipidemia, unspecified; Z87.09 Personal history of other diseases of the respiratory system; Z96.653 Presence of artificial knee joint, bilateral; Z85.89 Personal history of malignant neoplasm of other organs and systems; Z98.890 Other specified postprocedural states; Z79.01 Long term (current) use of anticoagulants; Z79.899 Other long term (current) drug therapy; Z79.84 Long term (current) use of oral hypoglycemic drugs; Z88.8 Allergy status to other drugs, medicaments and biological substances; Z88.5 Allergy status to narcotic agent; Z88.1 Allergy status to other antibiotic agents; Z88.0 Allergy status to penicillin; Z88.2 Allergy status to sulfonamides; Z87.891 Personal history of nicotine dependence

== ENCOUNTER → 2021-11-19 | Outpatient (CLI) | payer MEDICARE, BC ==
--- NOTE | 2021-11-19 19:31 | SFUN ---
SLEEP CENTER FOLLOW UP NOTE DATE OF SERVICE: 11/19/2021 This 86-year-old lady has been followed in Sleep Center for treatment of obstructive sleep apnea-hypopnea syndrome. The patient continues to use her CPAP equipment every night for the whole night and gets her supplies on time. Her only complaint is that sometimes she feels dryness in her mouth. She is using a full-face mask. She was not able to adjust humidity in the machine by herself. [place] Sleepiness Scale today is 10. I checked her CPAP unit. CPAP pressure is 11 cm of water. Usage is 29/30 nights and 24/30 nights for more than 4 hours, average 6.4 hours per night, which is good compliance. Leak is quite high, 49 L/minute. Apnea-hypopnea index, though, is totally normal at 0.8. Humidity is at level 4, which is average. Air filter is in good condition. MEDICATIONS: 1. Atenolol 50 mg twice a day. 2. Eliquis 5 mg twice a day. 3. Cardizem 120 mg once a day. 4. Lisinopril 2.5 mg once a day. 5. Sertraline 25 mg once a day. 6. Jardiance 10 mg once a day. 7. Januvia 100 mg once a day. 8. Duloxetine 40 mg once a day. 9. Atorvastatin 10 mg once a day. PHYSICAL EXAMINATION: GENERAL: Pleasant patient in no distress. VITAL SIGNS: BP 143/83, HR 85, RR 18, weight 221.4, height 5 feet 7 inches, temperature 96.9, oxygen saturation at room air 92%. HEENT: PERRLA, EOMI, evaluation of oropharynx showed tongue protrudes midline. NECK: Supple, no JVD. Thyroid is not palpable. LUNGS: Clear to percussion and to auscultation. Good air exchange. No wheezing or rhonchi. HEART: S1, S2 regular. No murmurs, gallops, or rubs. ABDOMEN: Soft and nontender. Bowel sounds are present. No organomegaly appreciated. EXTREMITIES: No clubbing or cyanosis. HOSPICE MUSIC THERAPY: Awake, alert, and oriented X3. Cranial nerves 2 to 7 intact. There is no fasciculation or atrophy. noted. No focal deficits observed. IMPRESSION: 1. Obstructive sleep apnea-hypopnea syndrome. Patient demonstrated good compliance with treatment. Normal respiration on CPAP, benefitting from treatment. 2. History of atrial fibrillation. 3. Hypertension. 4. Diabetes mellitus. 5. Hyperlipidemia. 6. History of sinusitis. 7. Status post bilateral knee replacement. 8. 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 No recent episodes. 9. Status post basal cell carcinoma removed from the leg. PLAN: 1. I taught the patient how to adjust humidity in the CPAP unit and I adjusted the level of humidity from 4 to 6. 2. Patient will continue to use PAP equipment every night for the whole night. 3. Sleep hygiene with regular time in bed for at least 7-1/2 to 8 hours. 4. Precautions related to driving. No driving if feeling sleepiness. 5. I will maintain all necessary prescription for PAP supplies including mask, tube, filters. 6. Watching weight. 7. Follow-up visit in 6 months or earlier if patient has any problems. Thank you very much for allowing me to participate in the management of your patient. Sincerely, Geo Haney MD, PhD, FAASM Diplomat of [employer] Sleep Medicine Board of [employer] Family Partner of [facility] [place] MMODL / IJN: [id number] /
== END ==
LOC: SLEEP 13:16
PROVIDERS: ATTEND Internal Medicine
DX: G47.33 Obstructive sleep apnea (adult) (pediatric) (principal); Z99.89 Dependence on other enabling machines and devices; I48.91 Unspecified atrial fibrillation; I10 Essential (primary) hypertension; E11.9 Type 2 diabetes mellitus without complications; E78.5 Hyperlipidemia, unspecified; Z96.653 Presence of artificial knee joint, bilateral; Z85.828 Personal history of other malignant neoplasm of skin; Z87.09 Personal history of other diseases of the respiratory system; Z79.01 Long term (current) use of anticoagulants; Z79.84 Long term (current) use of oral hypoglycemic drugs; Z88.0 Allergy status to penicillin; Z88.1 Allergy status to other antibiotic agents; Z88.5 Allergy status to narcotic agent; Z88.2 Allergy status to sulfonamides; Z88.8 Allergy status to other drugs, medicaments and biological substances; Z87.891 Personal history of nicotine dependence

== ENCOUNTER 2021-12-02 07:52 | Emergency (ER) | payer MEDICARE, BC ==
[2021-12-02 08:02] VITALS: TEMP 97
[2021-12-02] MEDS ORDERED: SODIUM CHLORIDE 0.9% 1,000 ML IV ONE (08:17)
[2021-12-02] MEDS ORDERED: ONDANSETRON 4 MG/2 ML VIAL IVP STA (08:17)
--- NOTE | 2021-12-02 08:42 | ED ---
General Adult HPI - General Chief complaint: Dizziness Stated complaint: diabetes Time Seen by Provider: 12/02/21 08:00 Source: patient, RN notes reviewed, old records reviewed Mode of arrival: ambulatory Limitations: no limitations - History of Present Illness Initial comments: This is an 86-year-old female comes in with multiple complaints. Patient states she's had a headache which started the front of her head and is now the occipital region, nausea, generalized weakness and urinary urgency all of which is been ongoing for a week and a half to 2 weeks. Patient states the reason she came in today as she was unable to sleep last night and she felt weaker when she got up so she decided to come to the emergency department to be checked out. Cisco crowe denies any chest pain or palpitations. Patient denies any difficulty breathing or shortness of breath per patient denies any recent fever chills or cough per patient denies any recent injury. Patient denies any abdominal pain. Patient denies any vomiting or diarrhea. - Related Data Home Medications Medication Instructions Recorded Confirmed Gabapentin 100 mg PO BID 06/11/16 12/02/21 Rosuvastatin Calcium [Crestor] 10 mg PO HS 08/18/17 12/02/21 Diltiazem HCl [Cartia Xt] 120 mg PO DAILY 02/02/18 12/02/21 DULoxetine HCL [Cymbalta] 60 mg PO HS 06/09/18 12/02/21 Cholecalciferol [Vitamin D3 (25 25 mcg PO DAILY 12/02/21 12/02/21 Mcg = 1000 Iu)] Empagliflozin [Jardiance] 10 mg PO DAILY 12/02/21 12/02/21 Folic Acid 0.4 mg PO DAILY 12/02/21 12/02/21 Furosemide [Lasix] 20 mg PO DAILY 12/02/21 12/02/21 Gabapentin [Neurontin] 100 mg PO AC-LUNCH PRN 12/02/21 12/02/21 Sertraline [Zoloft] 25 mg PO DAILY 12/02/21 12/02/21 Turmeric Root Extract [Turmeric] 500 mg PO DAILY 12/02/21 12/02/21 Ubidecarenone [Co Q-10] 100 mg PO DAILY 12/02/21 12/02/21 Vitamin B Complex 1 cap PO DAILY 12/02/21 12/02/21 Xanax(Unknown) 1 tab PO DIRECTED PRN 12/02/21 12/02/21 Zinc 50 mg PO DAILY 12/02/21 12/02/21 lisinopriL [Zestril] 2.5 mg PO DAILY 12/02/21 12/02/21 sitaGLIPtin [Januvia] 100 mg PO DAILY 12/02/21 12/02/21 Previous Rx's Medication Instructions Recorded Apixaban [Eliquis] 5 mg PO BID #60 tab 06/15/16 atenoloL [Tenormin] 50 mg PO BID #60 tab 06/15/16 Allergies Allergy/AdvReac Type Severity Reaction Status Date / Time atorvastatin [From Lipitor] Allergy Unknown Verified 12/02/21 10:57 levofloxacin [From Levaquin] Allergy Rash/Hives Verified 12/02/21 10:57 nitrofurantoin Allergy Rash/Hives Verified 12/02/21 10:57 [From Macrobid] Penicillins Allergy Unknown Verified 12/02/21 10:57 Childhood Sulfa (Sulfonamide Allergy Rash/Hives Verified 12/02/21 10:57 Antibiotics) sulfamethoxazole Allergy Rash/Hives Verified 12/02/21 10:57 [From Bactrim] trimethoprim [From Bactrim] Allergy Rash/Hives Verified 12/02/21 10:57 hydrocodone [From Lortab] AdvReac Hallucinati Verified 12/02/21 10:57 ons Review of Systems ROS Statement: Those systems with pertinent positive or pertinent negative responses have been documented in the HPI. ROS Other: All systems not noted in ROS Statement are negative. Past Medical History Past Medical History: Atrial Fibrillation, Diabetes Mellitus, Hyperlipidemia, H ypertension, Mitral Valve Prolapse (MVP), Sleep Apnea/CPAP/BIPAP Additional Past Medical History / Comment(s): CURRENT: EXHAUSTED, LOW HGB. Left eye cataract, neuropathy, chronic bronchitis, uses cpap History of Any Multi-Drug Resistant Organisms: None Reported Past Surgical History: Cardiac Ablation, Orthopedic Surgery Additional Past Surgical History / Comment(s): tuan cataracts . TOTAL BILATERAL KNEES. Past Anesthesia/Blood Transfusion Reactions: Previous Problems w/ Anesthesia Additional Past Anesthesia/Blood Transfusion Reaction / Comment(s): slow to wake up from anesthesia Past Psychological History: No Psychological Hx Reported Smoking Status: Never smoker Past Alcohol Use History: None Reported Past Drug Use History: None Reported - Past Family History Mother Family Medical History: No Reported History Additional Family Medical History / Comment(s): . Father Family Medical History: Myocardial Infarction ([place]) General Exam - General Exam Comments Initial Comments: GENERAL: Patient is well-developed and well-nourished. Patient is nontoxic and well- hydrated and is in mild distress. ENT: Neck is soft and supple. No significant lymphadenopathy is noted. Oropharynx is clear. Moist mucous membranes. Neck has full range of motion without elici ting any pain. EYES: The sclera were anicteric and conjunctiva were pink and moist. Extraocular mo vements were intact and pupils were equal round and reactive to light. Eyelids were unremarkable. PULMONARY: Unlabored respirations. Good breath sounds bilaterally. No audible rales rhonchi or wheezing was noted. CARDIOVASCULAR: Patient has an irregular rate at about 80 beats a minute ABDOMEN: Soft and nontender with normal bowel sounds. SKIN: Skin is clear with no lesions or rashes and otherwise unremarkable. NEUROLOGIC: Patient is alert and oriented x3. Cranial nerves II through XII are grossly intact. Motor and sensory are also intact. Normal speech, volume and content. Symmetrical smile. MUSCULOSKELETAL: Normal extremities with adequate strength and full range of motion. No lower extremity swelling or edema. No calf tenderness. LYMPHATICS: No significant lymphadenopathy is noted PSYCHIATRIC: Normal psychiatric evaluation. Limitations: no limitations Course Vital Signs 12/02/21 12/02/21 07:58 10:08 Temperature 97 F L Pulse Rate 84 78 Respiratory 22 18 Rate Blood Pressure 140/80 100/64 O2 Sat by Pulse 96 95 Oximetry Medical Decision Making - Medical Decision Making EKG shows atrial fibrillation at 77 bpm QRS 74 QT interval 367 QTC is 399. EKG shows no ST segment elevation or depression. I went in and reexamined the patient she was eating and able to walk without problems. Patient felt comfortable going home at this time and no longer had any complaints. - Lab Data Result diagrams: 12/02/21 08:55 12/02/21 09:59 Lab Results 12/02/21 12/02/21 12/02/21 Range/Units 08:55 08:55 08:55 WBC 7.9 (3.8-10.6) k/uL RBC 5.33 (3.80-5.40) m/uL Hgb 17.0 H (11.4-16.0) gm/dL Hct 50.7 H (34.0-46.0) % MCV 95.2 (80.0-100.0) fL MCH 31.9 (25.0-35.0) pg MCHC 33.6 (31.0-37.0) g/dL RDW 13.6 (11.5-15.5) % Plt Count 175 (150-450) k/uL MPV 8.1 Neutrophils % 78 % Lymphocytes % 14 % Monocytes % 4 % Eosinophils % 3 % Basophils % 0 % Neutrophils # 6.1 (1.3-7.7) k/uL Lymphocytes # 1.1 (1.0-4.8) k/uL Monocytes # 0.3 (0-1.0) k/uL Eosinophils # 0.2 (0-0.7) k/uL Basophils # 0.0 (0-0.2) k/uL Sodium (137-145) mmol/L Potassium (3.5-5.1) mmol/L Chloride (98-107) mmol/L Carbon Dioxide (22-30) mmol/L Anion Gap mmol/L BUN (7-17) mg/dL Creatinine (0.52-1.04) mg/dL Est GFR (CKD-EPI)AfAm (>60 ml/min/1.73 sqM) Est GFR (CKD-EPI)NonAf (>60 ml/min/1.73 sqM) Glucose (74-99) mg/dL Calcium (8.4-10.2) mg/dL Magnesium (1.6-2.3) mg/dL Total Bilirubin (0.2-1.3) mg/dL AST (14-36) U/L ALT (4-34) U/L Alkaline Phosphatase (38-126) U/L Total Protein (6.3-8.2) g/dL Albumin (3.5-5.0) g/dL Urine Color Yellow Urine Appearance Clear (Clear) Urine pH 5.5 (5.0-8.0) Ur Specific [place] 1.020 (1.001-1.035) Urine Protein Negative (Negative) Urine Glucose (UA) 4+ H (Negative) Urine Ketones Negative (Negative) Urine Blood Negative (Negative) Urine Nitrite Negative (Negative) Urine Bilirubin Negative (Negative) Urine Urobilinogen <2.0 (<2.0) mg/dL Ur Leukocyte Esterase Negative (Negative) Coronavirus (PCR) Not Detected (Not Detectd) 12/02/21 Range/Units 09:59 WBC (3.8-10.6) k/uL RBC (3.80-5.40) m/uL Hgb (11.4-16.0) gm/dL Hct (34.0-46.0) % MCV (80.0-100.0) fL MCH (25.0-35.0) pg MCHC (31.0-37.0) g/dL RDW (11.5-15.5) % Plt Count (150-450) k/uL MPV Neutrophils % % Lymphocytes % % Monocytes % % Eosinophils % % Basophils % % Neutrophils # (1.3-7.7) k/uL Lymphocytes # (1.0-4.8) k/uL Monocytes # (0-1.0) k/uL Eosinophils # (0-0.7) k/uL Basophils # (0-0.2) k/uL Sodium 136 L (137-145) mmol/L Potassium 4.5 (3.5-5.1) mmol/L Chloride 102 (98-107) mmol/L Carbon Dioxide 25 (22-30) mmol/L Anion Gap 9 mmol/L BUN 39 H (7-17) mg/dL Creatinine 1.26 H (0.52-1.04) mg/dL Est GFR (CKD-EPI)AfAm 45 (>60 ml/min/1.73 sqM) Est GFR (CKD-EPI)NonAf 39 (>60 ml/min/1.73 sqM) Glucose 193 H (74-99) mg/dL Calcium 9.6 (8.4-10.2) mg/dL Magnesium 1.7 (1.6-2.3) mg/dL Total Bilirubin 0.8 (0.2-1.3) mg/dL AST 36 (14-36) U/L ALT 23 (4-34) U/L Alkaline Phosphatase 48 (38-126) U/L Total Protein 7.6 (6.3-8.2) g/dL Albumin 4.2 (3.5-5.0) g/dL Urine Color Urine Appearance (Clear) Urine pH (5.0-8.0) Ur Specific [place] (1.001-1.035) Urine Protein (Negative) Urine Glucose (UA) (Negative) Urine Ketones (Negative) Urine Blood (Negative) Urine Nitrite (Negative) Urine Bilirubin (Negative) Urine Urobilinogen (<2.0) mg/dL Ur Leukocyte Esterase (Negative) Coronavirus (PCR) (Not Detectd) Disposition Clinical Impression: Cephalgia, Generalized weakness Disposition: HOME SELF-CARE Condition: Good Instructions (If sedation given, give patient instructions): Weakness (ED) Is patient prescribed a controlled substance at d/c from ED?: No Referrals: Sylvain Carter DO [Primary Care Provider] - 1-2 days Time of Disposition: 12:31
[2021-12-02 09:05] LABS: Appearance,Urine Clear (Clear); Bilirubin,Urine Negative (Negative); Blood,Urine Negative (Negative); Color,Urine Yellow; Glucose,Urine (UA) 4+ (Negative); Ketones,Urine Negative (Negative); Leukocyte Esterase,Urine Negative (Negative); Nitrite,Urine Negative (Negative); PH, Urine 5.5 (5.0-8.0); Protein,Urine Negative (Negative); Urobilinogen,Urine <2.0 mg/dL (<2.0)
[2021-12-02 09:21] LABS: Basophils % (A) 0 %; Eosinophils # (A) 0.2 k/uL (0-0.7); Eosinophils % (A) 3 %; HCT 50.7 % (34.0-46.0); Lymphocytes # (A) 1.1 k/uL (1.0-4.8); Lymphocytes % (A) 14 %; MCH 31.9 pg (25.0-35.0); MCHC 33.6 g/dL (31.0-37.0); MCV 95.2 fL (80.0-100.0); Mean Platelet Volume 8.1; Monocytes # (A) 0.3 k/uL (0-1.0); Monocytes % (A) 4 %; Neutrophils # (A) 6.1 k/uL (1.3-7.7); Neutrophils % (A) 78 %; Platelet Count 175 k/uL (150-450); RBC 5.33 m/uL (3.80-5.40); RDW 13.6 % (11.5-15.5); WBC 7.9 k/uL (3.8-10.6)
--- NOTE | 2021-12-02 09:36 | CT ---
EXAMINATION TYPE: CT brain wo con DATE OF EXAM: 12/02/2021 COMPARISON: 06/11/2016 HISTORY: Headache CT DLP: 1142.4 mGycm Automated exposure control for dose reduction was used. FINDINGS: Mild to moderate generalized degenerative change. Focal area of low attenuation in the right frontal lobe suggest remote ischemia. Calcification in the basal ganglia. Additional areas of low attenuation white matter are nonspecific but most typical remote white matter ischemia. Tiny osteoma involving t he inner table of the right frontal bone. Orbits are symmetric. Sinuses are clear. Craniocervical junction maintained. Sella turcica has a norm al appearance. IMPRESSION: 1. Degenerative and remote ischemic change with no diagnostic evidence of acute hemorrhage or mass ef fect.
[2021-12-02 10:08] VITALS: RESP 18
[2021-12-02 10:46] LABS: Albumin 4.2 g/dL (3.5-5.0); Calcium 9.6 mg/dL (8.4-10.2); Magnesium 1.7 mg/dL (1.6-2.3); Potassium 4.5 mmol/L (3.5-5.1); Total Bilirubin 0.8 mg/dL (0.2-1.3); Total Protein 7.6 g/dL (6.3-8.2)
[2021-12-02 12:55] VITALS: BP 130/81; PULSE 79
== END 2021-12-02 13:02 | disposition home or self-care (01) ==
LOC: EC 07:52
DX: R51.9 Headache, unspecified (principal); R53.1 Weakness; I48.91 Unspecified atrial fibrillation; E11.9 Type 2 diabetes mellitus without complications; E78.5 Hyperlipidemia, unspecified; I10 Essential (primary) hypertension; Z20.822 Contact with and (suspected) exposure to COVID-19; Z79.01 Long term (current) use of anticoagulants; Z88.0 Allergy status to penicillin; Z88.2 Allergy status to sulfonamides; Z88.1 Allergy status to other antibiotic agents; Z88.5 Allergy status to narcotic agent; Z96.653 Presence of artificial knee joint, bilateral
CPT/HCPCS: 99285; 96374; 96361 ×3; 36415; 93005; 80053; 83735; 85025; 81003; 87635; 70450; J2405

== ENCOUNTER → 2022-04-17 | Outpatient (CLI) | payer MEDICARE, BC ==
--- NOTE | 2022-04-17 14:40 | BD ---
EXAMINATION TYPE: Axial Bone Density DATE OF EXAM: 04/17/2022 COMPARISON: Prior DEXA bone scan 2011 CLINICAL HISTORY: 87 years year old Female. ICD-10 CODE: Z78.0 ASYMPTOMATIC MENOPAUSAL STATE Height: 5'6 Weight: 223 FRAX RISK QUESTIONS: Secondary Osteoporosis: RISK FACTORS HISTORY OF: Postmenopausal woman: y MEDICATIONS: Additional Medications: blood pressure, cymbalta Additional History: bowel cancer 2020 EXAM MEASUREMENTS: Bone mineral densitometry was performed using the [email or web address] System. Bone mineral density as measured about the Lumbar spine is: ----- L1-L4(G/cm2): 1.232 T Score Values are as follows: ----- L1: -0.3 ----- L2: 0.1 ----- L3: 0.5 ----- L4: 0.9 ----- L1-L4: 0.4 Bone mineral density has: Increased 16.5% since study of: 07/14/2012 Bone mineral density about the R hip (g/cm2): 0.889 Bone mineral density about the L hip (g/cm2): 0.935 T Score values are as follows: -----R Neck: -1.1 -----L Neck: -0.7 -----R Total: -0.5 -----L Total: -0.1 Bone mineral density has: Increased 6.2% since study of: 07/14/2012 FRAX%s: The graph provided illustrates a 16.1% chance for a major osteoporotic fx and a 3.2% chance f or the hips probability for fx in 10 years time. IMPRESSION: Osteopenia (T Score between -2.5 and -1) remains present femoral neck level right hip. There is slightly increased risk of fracture and the patient may be considered for treatment. Re-Screen 2-5 years. NOTE: T-SCORE=SD OF THE YOUNG ADULT MEAN.
== END | disposition home or self-care (01) ==
LOC: RADBDWWP 14:08
PROVIDERS: ATTEND Family Medicine
DX: M85.89 Other specified disorders of bone density and structure, multiple sites (principal); Z78.0 Asymptomatic menopausal state
CPT/HCPCS: 77080

== ENCOUNTER → 2023-07-07 | Outpatient (CLI) | payer MEDICARE ==
--- NOTE | 2023-07-07 23:05 | US ---
EXAMINATION TYPE: US abd limited kidneys/bladder DATE OF EXAM: 07/07/2023 COMPARISON: NONE CLINICAL INDICATION: Female, 88 years old with history of R31.9 HEMATURIA; abnormal labs TECHNIQUE: Multiple sonographic images of the right upper quadrant, bilateral kidneys, and bladder ar e obtained. FINDINGS: EXAM MEASUREMENTS: Liver Length: 19.5 cm Gallbladder Wall: 0.2 cm CBD: 0.6 cm Right Kidney: 9.9x4.5x4.8 cm Left Kidney: 10.6x4.4x4.3 cm Pancreas: Tail obscured by overlying bowel gas Liver: enlarged and echogenic, difficult to assess due to attenuation and body habitus Gallbladder: echogenic shadowing focus: 0.6cm CBD: upper limits at extrahepatic portion Right Kidney: wnl Left Kidney: tiny 0.2cm shadowing focus noted at mid kidney, may correspond to stone seen on prior C T Bladder: wnl Bilateral Jets Seen Yes MOLD HOLDER NOTES: exam limited by bowel, large body habitus, and attenuation from liver IMPRESSION: 1. Hepatomegaly 2. Cholelithiasis 3. 0.2 cm shadowing left renal calcification. No hydronephrosis.
== END | disposition home or self-care (01) ==
LOC: RADUSWWP 08:47
PROVIDERS: ATTEND Internal Medicine
DX: K80.20 Calculus of gallbladder without cholecystitis without obstruction (principal); N28.89 Other specified disorders of kidney and ureter; R31.9 Hematuria, unspecified; R16.0 Hepatomegaly, not elsewhere classified; R79.9 Abnormal finding of blood chemistry, unspecified
CPT/HCPCS: 76705; 76770

== ENCOUNTER → 2023-10-18 | Outpatient (CLI) | payer MEDICARE ==
--- NOTE | 2023-10-18 15:59 | P.PN ---
Subjective DATE: 10/18/2023 FOLLOW UP VISIT. Patient with obstructive sleep apnea hypopnea syndrome return to sleep center for follow-up visit. Information from previous visit have been reviewed. Patient was not able to use CPAP equipment for the last months, because of mask problems. Patient is using full face mask and for significant leak from the mask which wakes her up. [place] sleepiness scale is slightly increased to 10. I checked information from PAP unit. PAP unit pressure 11 cm H2O. Leak is 77 l/m, which is in acceptable range. Apnea Hypopnea Index is 2.3, which is normal. MEDICATIONS:1. Atenolol 50 mg twice a day 2. Eliquis 5 mg twice a day 3. Cardizem 120 mg once a day 4. Lisinopril 2.5 mg once a day 5. Sertraline 25 mg once a day 6. Atorvastatin 10 mg once a day 7. Zoloft 25 mg once a day 8. Januvia During physical exam: GENERAL: A pleasant patient without any distress. VITAL SIGNS: BP 121/78, HR 88, RR 16, weight 215, temperature 97.3, oxygen saturation at room air 92 % . HEENT: PERRLA, EOMI.low position of soft palate, Mallapati 3 . NECK: Supple. No JVD. LUNGS: Clear to percussion and to auscultation. Good air exchange. No wheezing or rhonchi. HEART: S1, S2 regular. ABDOMEN: Soft and nontender.[] EXTREMITIES: No clubbing or cyanosis. HVAC/R SERVICE TECHNICIAN: Awake, alert, and oriented x3. No focal deficit. Impressions: 1. Obstructive sleep apnea-hypopnea syndrome. Patient has difficulties with the usage of CPAP equipment secondary to mask problem. 2. History of atrial fibrillation 3. Hypertension. 4. Diabetes mellitus. 5. Hyperlipidemia. 6. Status post bilateral knee replacement. 7. 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 Plan: 1. Continue using PAP equipment every night for the whole night. Patient was fitted with a different type of full face mask. 2. To change air filter at least 1-2 times per month. 3. PAP unit should stay lower then position of the head. 4. Advised patient to remove all remaining water from humidifier canister daily and make it dry after each usage. Refill canister with fresh distilled water before each usage. 5. Sleep hygiene with regular time in bed for at least 8 hours. 6. Precautions related to driving. No driving if feel any sleepiness. 7. I will maintain prescription for PAP supplies including mask, tube, filters. 8. Follow up visit in 3 months or earlier if patient has any problems. 9. Watching weight. Thank you very much for allowing me to participate in the management of your patient. Geo Haney MD, PhD, FAASM. Diplomat of [employer], Sleep Medicine Board by [employer] Employment Representative of [facility] [place]
== END ==
LOC: 3 N SLEEP 14:23
PROVIDERS: ATTEND Internal Medicine
DX: G47.33 Obstructive sleep apnea (adult) (pediatric) (principal); E11.9 Type 2 diabetes mellitus without complications; I10 Essential (primary) hypertension; E78.5 Hyperlipidemia, unspecified; I48.91 Unspecified atrial fibrillation; G47.52 REM sleep behavior disorder; Z96.653 Presence of artificial knee joint, bilateral; Z79.01 Long term (current) use of anticoagulants; Z79.899 Other long term (current) drug therapy; Z99.89 Dependence on other enabling machines and devices; Z88.1 Allergy status to other antibiotic agents; Z88.6 Allergy status to analgesic agent; Z88.0 Allergy status to penicillin; Z88.2 Allergy status to sulfonamides; Z88.5 Allergy status to narcotic agent; Z88.8 Allergy status to other drugs, medicaments and biological substances; Z79.85 Long-term (current) use of injectable non-insulin antidiabetic drugs; Z87.891 Personal history of nicotine dependence
CPT/HCPCS: 99212

== ENCOUNTER → 2024-02-03 | Outpatient (CLI) | payer MEDICARE ==
[2024-02-03 16:50] VITALS: BP 102/67; PULSE 70; RESP 16; TEMP 98.2
--- NOTE | 2024-02-03 17:13 | P.PROGSL ---
Subjective DATE: 02/03/2024 FOLLOW UP VISIT. Patient with obstructive sleep apnea hypopnea syndrome return to sleep center for follow-up visit. Information from previous visit have been reviewed. Patient has difficulties to use CPAP equipment, she feels that there are not enough pressure in CPAP unit in the moment when she is starting to use CPAP equipment. [place] sleepiness scale is 7, which is normal. I checked information from PAP unit. PAP unit pressure 11 cm H2O. Usage is 40% for more then 4 hours. Leak is very high range 90 l/m, which is in acceptable range. Apnea Hypopnea Index is 2.6, which is normal. MEDICATIONS: Please see below During physical exam: GENERAL: A pleasant patient without any distress. Patient is on wheelchair VITAL SIGNS: Please see below. HEENT: PERRLA, EOMI.low position of soft palate, Mallapati 3 . NECK: Supple. No JVD. LUNGS: Clear to percussion and to auscultation. Good air exchange. No wheezing or rhonchi. HEART: S1, S2 regular. ABDOMEN: Soft and nontender.[] EXTREMITIES: No clubbing or cyanosis. EMD SPECIAL EDUCATION TEACHER: Awake, alert, and oriented x3. No focal deficit. Impressions: 1. Obstructive sleep apnea-hypopnea syndrome. Patient has difficulties with CPAP, normal respiration while using CPAP. 2. Hypertension. 3. History of atrial fibrillation. 4. Diabetes mellitus. 5. Hyperlipidemia. 6. Status post bilateral knee replacement. 7. 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 I adjusted ramp pressure to start from 6 cm of water. Patient tried CPAP unit in the office, feels comfortable with that pressure. Plan: 1. Continue using PAP equipment every night for the whole night. 2. To change air filter at least 1-2 times per month. 3. PAP unit should stay lower then position of the head. 4. Advised patient to remove all remaining water from humidifier canister daily and make it dry after each usage. Refill canister with fresh distilled water before each usage. 5. Sleep hygiene with regular time in bed for at least 8 hours. 6. Precautions related to driving. No driving if feel any sleepiness. 7. I will maintain prescription for PAP supplies including mask, tube, filters. 8. Follow up visit in 6 months or earlier if patient has any problems. 9. Watching weight. Thank you very much for allowing me to participate in the management of your patient. Geo Haney MD, PhD, FAASM. Diplomat of [place] [employer] of Sleep Medicine, Sleep Medicine Board by [place] [employer] of [employer] Medicine [facility] Genetic[facility] [place] Objective - Vital Signs Vital Signs: Vital Signs Temp 98.2 F 02/03/24 16:30 Pulse 70 02/03/24 16:30 Resp 16 02/03/24 16:30 BP 102/67 02/03/24 16:30 Pulse Ox 97 02/03/24 16:30 FiO2 Intake & Output 02/02/24 02/03/24 02/03/24 18:59 06:59 18:59 Weight 97.522 kg Home Medications: Home Medications Medication Instructions Recorded Confirmed Type Gabapentin 100 mg PO BID 06/11/16 02/03/24 History Apixaban [Eliquis] 5 mg PO BID #60 tab 06/15/16 02/03/24 Rx atenoloL [Tenormin] 50 mg PO BID #60 tab 06/15/16 02/03/24 Rx Rosuvastatin Calcium [Crestor] 10 mg PO HS 08/18/17 02/03/24 History dilTIAZem HCL [Cartia Xt] 120 mg PO DAILY 02/02/18 12/02/21 History DULoxetine HCL [Cymbalta] 60 mg PO HS 06/09/18 12/02/21 History Cholecalciferol [Vitamin D3 (25 25 mcg PO DAILY 12/02/21 12/02/21 History Mcg = 1000 Iu)] Empagliflozin [Jardiance] 10 mg PO DAILY 12/02/21 12/02/21 History Folic Acid 0.4 mg PO DAILY 12/02/21 12/02/21 History Furosemide [Lasix] 20 mg PO DAILY 12/02/21 02/03/24 History Gabapentin [Neurontin] 100 mg PO AC-LUNCH PRN 12/02/21 02/03/24 History Sertraline [Zoloft] 25 mg PO DAILY 12/02/21 02/03/24 History Turmeric Root Extract [Turmeric] 500 mg PO DAILY 12/02/21 12/02/21 History Ubidecarenone [Co Q-10] 100 mg PO DAILY 12/02/21 12/02/21 History Vitamin B Complex 1 cap PO DAILY 12/02/21 12/02/21 History Xanax(Unknown) 1 tab PO DIRECTED PRN 12/02/21 02/03/24 History Zinc 50 mg PO DAILY 12/02/21 12/02/21 History lisinopriL [Zestril] 2.5 mg PO DAILY 12/02/21 02/03/24 History sitaGLIPtin [Januvia] 100 mg PO DAILY 12/02/21 02/03/24 History
== END ==
LOC: 3 N SLEEP 16:06
PROVIDERS: ATTEND Internal Medicine
DX: G47.33 Obstructive sleep apnea (adult) (pediatric) (principal); I10 Essential (primary) hypertension; E11.9 Type 2 diabetes mellitus without complications; E78.5 Hyperlipidemia, unspecified; I48.91 Unspecified atrial fibrillation; Z96.653 Presence of artificial knee joint, bilateral; Z99.89 Dependence on other enabling machines and devices; Z86.59 Personal history of other mental and behavioral disorders; Z79.01 Long term (current) use of anticoagulants; Z79.899 Other long term (current) drug therapy; Z79.85 Long-term (current) use of injectable non-insulin antidiabetic drugs; Z79.84 Long term (current) use of oral hypoglycemic drugs; Z88.1 Allergy status to other antibiotic agents; Z88.8 Allergy status to other drugs, medicaments and biological substances; Z88.0 Allergy status to penicillin; Z88.2 Allergy status to sulfonamides; Z88.5 Allergy status to narcotic agent; Z88.6 Allergy status to analgesic agent; Z87.891 Personal history of nicotine dependence
CPT/HCPCS: 99212

== ENCOUNTER 2024-08-02 17:13 | Emergency (ER) | payer MEDICARE ==
[2024-08-02 17:34] VITALS: TEMP 98.2
--- NOTE | 2024-08-02 18:30 | ED ---
Fall HPI - General Chief Complaint: Fall Stated Complaint: fall/L leg injury Time Seen by Provider: 08/02/24 17:30 Source: patient, RN notes reviewed Mode of arrival: wheelchair Limitations: no limitations - History of Present Illness Initial Comments: This is an 89-year-old female with history of diabetes presenting with fall while attempting to sit into a wheelchair at 1630 today. Patient states she was attempting to send urine to the wheelchair with no breaks engaged when in wheelchair escape from under her causing her to fall onto her gluteus and injuring her left lower extremity. Patient endorses laceration to her left lopez with minor pain. Denies any other injuries, loss of consciousness, head injury, neck pain. Patient endorses daily use of Eliquis. Patient states she is unsure of her last tetanus vaccination. 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 Fall Witnessed: no Loss of Consciousness: none Prolonged Down Time?: no Symptoms Prior to Fall: none Location - Extremities: Left: Leg Severity scale (1-10): 2 Context: tripped/slipped Associated Symptoms: denies - Related Data Home Medications Medication Instructions Recorded Confirmed Gabapentin 100 mg PO BID 06/11/16 02/03/24 Rosuvastatin Calcium [Crestor] 10 mg PO HS 08/18/17 02/03/24 dilTIAZem HCL [Cartia Xt] 120 mg PO DAILY 02/02/18 12/02/21 DULoxetine HCL [Cymbalta] 60 mg PO HS 06/09/18 12/02/21 Cholecalciferol [Vitamin D3 (25 25 mcg PO DAILY 12/02/21 12/02/21 Mcg = 1000 Iu)] Empagliflozin [Jardiance] 10 mg PO DAILY 12/02/21 12/02/21 Folic Acid 0.4 mg PO DAILY 12/02/21 12/02/21 Furosemide [Lasix] 20 mg PO DAILY 12/02/21 02/03/24 Gabapentin [Neurontin] 100 mg PO AC-LUNCH PRN 12/02/21 02/03/24 Sertraline [Zoloft] 25 mg PO DAILY 12/02/21 02/03/24 Turmeric Root Extract [Turmeric] 500 mg PO DAILY 12/02/21 12/02/21 Ubidecarenone [Co Q-10] 100 mg PO DAILY 12/02/21 12/02/21 Vitamin B Complex 1 cap PO DAILY 12/02/21 12/02/21 Xanax(Unknown) 1 tab PO DIRECTED PRN 12/02/21 02/03/24 Zinc 50 mg PO DAILY 12/02/21 12/02/21 lisinopriL [Zestril] 2.5 mg PO DAILY 12/02/21 02/03/24 sitaGLIPtin [Januvia] 100 mg PO DAILY 12/02/21 02/03/24 Previous Rx's Medication Instructions Recorded Apixaban [Eliquis] 5 mg PO BID #60 tab 06/15/16 atenoloL [Tenormin] 50 mg PO BID #60 tab 06/15/16 Bacitracin/Polymyx Oint 1 applic TOPICAL BID #30 gm 08/02/24 [Polysporin Oint] Allergies Allergy/AdvReac Type Severity Reaction Status Date / Time atorvastatin [From Lipitor] Allergy Unknown Verified 08/02/24 17:28 levofloxacin [From Levaquin] Allergy Rash/Hives Verified 08/02/24 17:28 nitrofurantoin Allergy Rash/Hives Verified 08/02/24 17:28 [From Macrobid] Penicillins Allergy Unknown Verified 08/02/24 17:28 Childhood Sulfa (Sulfonamide Allergy Rash/Hives Verified 08/02/24 17:28 Antibiotics) sulfamethoxazole Allergy Rash/Hives Verified 08/02/24 17:28 [From Bactrim] trimethoprim [From Bactrim] Allergy Rash/Hives Verified 08/02/24 17:28 hydrocodone [From Lortab] AdvReac Hallucinati Verified 08/02/24 17:28 ons Review of Systems ROS Statement: Those systems with pertinent positive or pertinent negative responses have been documented in the HPI. ROS Other: All systems not noted in ROS Statement are negative. Past Medical History Past Medical History: Atrial Fibrillation, Diabetes Mellitus, Hyperlipidemia, Hypertension, Mitral Valve Prolapse (MVP), Sleep Apnea/CPAP/BIPAP Additional Past Medical History / Comment(s): CURRENT: EXHAUSTED, LOW HGB. Left eye cataract, neuropathy, chronic bronchitis, uses cpap History of Any Multi-Drug Resistant Organisms: None Reported Past Surgical History: Cardiac Ablation, Orthopedic Surgery Additional Past Surgical History / Comment(s): tuan cataracts . TOTAL BILATERAL KNEES. Past Anesthesia/Blood Transfusion Reactions: Previous Problems w/ Anesthesia Additional Past Anesthesia/Blood Transfusion Reaction / Comment(s): slow to wake up from anesthesia Past Psychological History: No Psychological Hx Reported Smoking Status: Never smoker Past Alcohol Use History: None Reported Past Drug Use History: None Reported - Past Family History Mother Family Medical History: No Reported History Additional Family Medical History / Comment(s): . Father Family Medical History: Myocardial Infarction (MO) General Exam Limitations: no limitations General appearance: alert, in no apparent distress Head exam: Present: atraumatic, normocephalic, normal inspection Eye exam: Present: normal appearance, PERRL, EOMI. Absent: scleral icterus, conjunctival injection, periorbital swelling ENT exam: Present: normal exam, mucous membranes moist Neck exam: Present: normal inspection. Absent: tenderness, meningismus, lymphadenopathy Respiratory exam: Present: normal lung sounds bilaterally. Absent: respiratory distress, wheezes, rales, rhonchi, stridor Cardiovascular Exam: Present: regular rate, normal rhythm, normal heart sounds. Absent: systolic murmur, diastolic murmur, rubs, gallop, clicks GI/Abdominal exam: Present: soft, normal bowel sounds. Absent: distended, tenderness, guarding, rebound, rigid Extremities exam: Present: full ROM, normal capillary refill, other (5 x 7 cm superficial skin tear of left mid anterior lopez with partial sloughing of skin inferiorly. No obvious foreign body, surrounding erythema, bleeding, discharge, crepitus, deformity.). Absent: tenderness, pedal edema, joint swelling, calf tenderness Back exam: Present: normal inspection Neurological exam: Present: alert, oriented X3, CN II-XII intact Psychiatric exam: Present: normal affect, normal mood Skin exam: Present: warm, dry, intact, normal color. Absent: rash Course Vital Signs 08/02/24 17:29 Temperature 98.2 F Pulse Rate 53 L Respiratory 18 Rate Blood Pressure 92/59 O2 Sat by Pulse 97 Oximetry Medical Decision Making - Medical Decision Making Was pt. sent in by a medical professional or institution (, PA, APARTMENT MAINTENANCE SUPERVISOR, urgent care, hospital, or intermediate...) When possible be specific @ -[No] Did you speak to anyone other than the patient for history (EMS, parent, family, police, friend...)? What history was obtained from this source @ -[No] Did you review nursing and triage notes (agree or disagree)? Why? @ -[I reviewed and agree with nursing and triage notes] Were old charts reviewed (outside hosp., previous admission, EMS record, old EKG, old radiological studies, urgent care reports/EKG's, intermediate records)? Report findings @ -[No old charts were reviewed] Differential Diagnosis (chest pain, altered mental status, abdominal pain women, abdominal pain men, vaginal bleeding, weakness, fever, dyspnea, syncope, headache, dizziness, GI bleed, back pain, seizure, CVA, palpatations, mental health, musculoskeletal)? @ -Tib-fib fracture, superficial abrasion with skin tear, cellulitis, retained foreign body, tetanus, this is not an exhaustive list. EKG interpreted by me (3pts min.). @ -Not done X-rays interpreted by me (1pt min.). @ -[None done] CT interpreted by me (1pt min.). @ -[None done] U/S interpreted by me (1pt. min.). @ -[None done] What testing was considered but not performed or refused? (CT, X-rays, U/S, labs)? Why? @ -[None] What meds were considered but not given or refused? Why? @ -[None] Did you discuss the management of the patient with other professionals (professionals i.e. , PA, APARTMENT MAINTENANCE SUPERVISOR, lab, RT, psych nurse, child protective services social worker, commutator operator, teacher, court security officer, catalytic case operator)? Give summary @ -[No] Was smoking cessation discussed for >3mins.? @ -[No] Was critical care preformed (if so, how long)? @ -[No] Were there social determinants of health that impacted care today? How? (Homelessness, low income, unemployed, alcoholism, drug addiction, transportation, low edu. Level, literacy, decrease access to med. care, intermediate, rehab)? @ -[No] Was there de-escalation of care discussed even if they declined (Discuss DNR or withdrawal of care, Hospice)? DNR status @ -[No] What co-morbidities impacted this encounter? (DM, HTN, Smoking, COPD, CAD, Cancer, CVA, ARF, Chemo, Hep., AIDS, mental health diagnosis, sleep apnea, mor bid obesity)? @ -DM Was patient admitted / discharged? Hospital course, mention meds given and route, prescriptions, significant lab abnormalities, going to OR and other pertinent info. @ -[hospital course] Undiagnosed new problem with uncertain prognosis? @ -[No] Drug Therapy requiring intensive monitoring for toxicity (Heparin, Nitro, Insulin, Cardizem)? @ -[No] Were any procedures done? @ -[No] Diagnosis/symptom? @ -[default] Acute, or Chronic, or Acute on Chronic? @ -Acute Uncomplicated (without systemic symptoms) or Complicated (systemic symptoms)? @ -Uncomplicated Side effects of treatment? @ -[No] Exacerbation, Progression, or Severe Exacerbation? @ -[No] Poses a threat to life or bodily function? How? (Chest pain, [place], [place], pneumonia, PE, COPD, DKA, ARF, appy, cholecystitis, CVA, Diverticulitis, Homicidal, Suicidal, threat to staff... and all critical care pts) @ -[No] Disposition Clinical Impression: Skin tear of left lower leg without complication, Fall Disposition: HOME SELF-CARE Condition: Good Instructions (If sedation given, give patient instructions): Fall Prevention for Older Adults (ED), Acute Wound Care (ED) Prescriptions: Bacitracin/Polymyx Oint [Polysporin Oint] 1 applic TOPICAL BID #30 gm Is patient prescribed a controlled substance at d/c from ED?: No Referrals: Perla Moreno MD [Primary Care Provider] - 1-2 days
[2024-08-02] MEDS: DIPH,PERTUS(ACELL)TETVAC-LF 0.5 ML VIAL IM ONE (18:53)
--- NOTE | 2024-08-02 19:27 | XR ---
EXAMINATION TYPE: XR tibia fibula LT DATE OF EXAM: 08/02/2024 7:03 PM COMPARISON: None available. CLINICAL INDICATION: Female, 89 years old with history of Left lopez injury following fall; [facility] TECHNIQUE: XR tibia fibula LT; examined in AP and lateral projections. FINDINGS: No acute fracture or dislocation. Partially visualized left knee arthroplasty with no evide nce of periprosthetic loosening. No focal osseous erosion or aggressive periosteal reaction. No unexp ected radiopaque foreign body. Inflammation along the plantar calcaneal surface Decreased tendon insertion site. IMPRESSION: No evidence of acute fracture or dislocation. [facility], , 08/02/2024 7:25 PM
[2024-08-02 19:49] VITALS: BP 124/67; PULSE 50; RESP 20
== END 2024-08-02 19:50 | disposition home or self-care (01) ==
LOC: EC 17:13
DX: S81.812A Laceration without foreign body, left lower leg, initial encounter (principal); I48.91 Unspecified atrial fibrillation; Z79.01 Long term (current) use of anticoagulants; Z88.0 Allergy status to penicillin; Z88.1 Allergy status to other antibiotic agents; Z88.2 Allergy status to sulfonamides; Z88.5 Allergy status to narcotic agent; Z88.8 Allergy status to other drugs, medicaments and biological substances; Z23 Encounter for immunization; W01.0XXA Fall on same level from slipping, tripping and stumbling without subsequent striking against object, initial encounter
CPT/HCPCS: 90471; 90715; 99283

== ENCOUNTER → 2024-08-02 | Outpatient (CLI) | payer MEDICARE ==
[2024-08-02 16:30] VITALS: BP 99/66; PULSE 80; RESP 16; TEMP 97.7
--- NOTE | 2024-08-02 16:53 | P.PROGSL ---
Subjective DATE: 08/02/2024 FOLLOW UP VISIT. Patient with obstructive sleep apnea hypopnea syndrome return to sleep center for follow-up visit. Information from previous visit have been reviewed. Patient was not able to use your CPAP equipment recently because unit is very noisy and told [place] sleepiness scale is 9, which is in normal range. I checked information from PAP unit. PAP unit pressure 11 cm H2O. Apnea Hypopnea Index is 1.8, which is normal. MEDICATIONS glimepiride 2 mg once a day, atenolol 50 mg twice a day, Eliquis, lisinopril 2.5 mg once a day, furosemide 20 mg 1 to 2 tablets a day, sertraline 25 mg once a day. During physical exam: GENERAL: A pleasant patient without any distress. VITAL SIGNS: Please see below, weight is 223 lbs. HEENT: PERRLA, EOMI.low position of soft palate, Mallapati 3. NECK: Supple. No JVD. LUNGS: Clear to percussion and to auscultation. Good air exchange. No wheezing or rhonchi. HEART: S1, S2 regular. ABDOMEN: Soft and nontender.[] EXTREMITIES: No clubbing or cyanosis. THREE KNIFE TRIMMER: Awake, alert, and oriented x3. No focal deficit. Impressions: 1. Obstructive sleep apnea-hypopnea syndrome. Patient was not able to use your CPAP equipment recently, because CPAP unit is very old and noisy. 2. Hypertension. 3. History of atrial fibrillation. 4. Diabetes mellitus. 5. Hyperlipidemia. 6. Status post bilateral knee replacement. 7. 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 Plan: 1. Continue using PAP equipment every night for the whole night. Prescription to replace CPAP to AutoPap with range of the pressure 7 to 12 cm of water. Patient will continue to use the same mask as now it is AirFit F20 small size. 2. Sleep hygiene with regular time in bed for at least 7.5-8 hours 3. PAP unit should stay lower then position of the head. 4. Advised patient to remove all remaining water from humidifier canister daily and make it dry after each usage. Refill canister with fresh distilled water before each usage. 5. Watching weight. 6. Precautions related to driving. No driving if feel any sleepiness. 7. I will maintain prescription for PAP supplies including mask, tube, filters. 8. Follow up visit in 1-3 months after getting new CPAP unit to evaluate clinical response to treatment, compliance with treatment and [place] adjustments. Thank you very much for allowing me to participate in the management of your patient. Geo Haney MD, PhD, FAASM. Diplomat of [place] [employer], Sleep Medicine Board by [place] [employer] Yard Coupler [facility] [place] Objective - Vital Signs Vital Signs: Vital Signs Temp 97.7 F 08/02/24 16:29 Pulse 80 08/02/24 16:29 Resp 16 08/02/24 16:29 BP 99/66 08/02/24 16:29 Pulse Ox 95 08/02/24 16:29 FiO2 Intake & Output 08/01/24 08/02/24 08/02/24 18:59 06:59 18:59 Weight 101.151 kg Home Medications: Home Medications Medication Instructions Recorded Confirmed Type Gabapentin 100 mg PO BID 06/11/16 02/03/24 History Apixaban [Eliquis] 5 mg PO BID #60 tab 06/15/16 02/03/24 Rx atenoloL [Tenormin] 50 mg PO BID #60 tab 06/15/16 02/03/24 Rx Rosuvastatin Calcium [Crestor] 10 mg PO HS 08/18/17 02/03/24 History dilTIAZem HCL [Cartia Xt] 120 mg PO DAILY 02/02/18 12/02/21 History DULoxetine HCL [Cymbalta] 60 mg PO HS 06/09/18 12/02/21 History Cholecalciferol [Vitamin D3 (25 25 mcg PO DAILY 12/02/21 12/02/21 History Mcg = 1000 Iu)] Empagliflozin [Jardiance] 10 mg PO DAILY 12/02/21 12/02/21 History Folic Acid 0.4 mg PO DAILY 12/02/21 12/02/21 History Furosemide [Lasix] 20 mg PO DAILY 12/02/21 02/03/24 History Gabapentin [Neurontin] 100 mg PO AC-LUNCH PRN 12/02/21 02/03/24 History Sertraline [Zoloft] 25 mg PO DAILY 12/02/21 02/03/24 History Turmeric Root Extract [Turmeric] 500 mg PO DAILY 12/02/21 12/02/21 History Ubidecarenone [Co Q-10] 100 mg PO DAILY 12/02/21 12/02/21 History Vitamin B Complex 1 cap PO DAILY 12/02/21 12/02/21 History Xanax(Unknown) 1 tab PO DIRECTED PRN 12/02/21 02/03/24 History Zinc 50 mg PO DAILY 12/02/21 12/02/21 History lisinopriL [Zestril] 2.5 mg PO DAILY 12/02/21 02/03/24 History sitaGLIPtin [Januvia] 100 mg PO DAILY 12/02/21 02/03/24 History
== END ==
LOC: 3 N SLEEP 16:00
PROVIDERS: ATTEND Internal Medicine
DX: G47.33 Obstructive sleep apnea (adult) (pediatric) (principal); I10 Essential (primary) hypertension; E11.9 Type 2 diabetes mellitus without complications; E78.5 Hyperlipidemia, unspecified; I48.91 Unspecified atrial fibrillation; G47.52 REM sleep behavior disorder; Z96.653 Presence of artificial knee joint, bilateral; Z99.89 Dependence on other enabling machines and devices; Z88.8 Allergy status to other drugs, medicaments and biological substances; Z88.1 Allergy status to other antibiotic agents; Z88.2 Allergy status to sulfonamides; Z88.0 Allergy status to penicillin; Z88.5 Allergy status to narcotic agent; Z79.01 Long term (current) use of anticoagulants; Z79.84 Long term (current) use of oral hypoglycemic drugs; Z79.899 Other long term (current) drug therapy; Z79.85 Long-term (current) use of injectable non-insulin antidiabetic drugs; Z87.891 Personal history of nicotine dependence
CPT/HCPCS: 99212

== ENCOUNTER → 2024-11-29 | Outpatient (CLI) | payer MEDICARE ==
[2024-11-29 15:20] VITALS: BP 117/75; PULSE 70; RESP 16; TEMP 97.3
--- NOTE | 2024-11-29 16:50 | P.PROGSL ---
Subjective DATE: 11/29/2024 FOLLOW UP VISIT. Patient with obstructive sleep apnea hypopnea syndrome return to sleep center for follow-up visit. This is first visit after patient received new CPAP unit. Patient was able to use PAP equipment every night for the whole night. The patient does not have significant problems with the mask, PAP pressure and humidification. [place] sleepiness scale is slightly increased to 11. I checked information from PAP unit. PAP unit pressure 7-12, average 10.4 cm H2O. Usage is 70% and 63% for more then 4 hours, average 8.5 hours per night. Leak is increased to 64.3 l/m. Apnea Hypopnea Index is 2.3, which is normal. MEDICATIONS: Please see below During physical exam: GENERAL: A pleasant patient without any distress. VITAL SIGNS: Please see below, weight 207.4 pounds. HEENT: PERRLA, EOMI.low position of soft palate, Mallapati 3. NECK: Supple. No JVD. LUNGS: Clear to percussion and to auscultation. Good air exchange. No wheezing or rhonchi. HEART: S1, S2 regular. ABDOMEN: Soft and nontender. EXTREMITIES: No clubbing or cyanosis. FIELD SOFTWARE ENGINEER: Awake, alert, and oriented x3. No focal deficit. Impressions: 1. Obstructive sleep apnea-hypopnea syndrome. Patient demonstrated borderline compliance with treatment, benefiting from treatment. 2. History of atrial fibrillation. 3. Hypertension. 4. Diabetes mellitus. 5. Hyperlipidemia. 6. Status post bilateral knee replacement. 7. 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 Plan: 1. Continue using PAP equipment every night for the whole night. 2. To change air filter at least 1-2 times per month. 3. PAP unit should stay lower then position of the head. 4. Advised patient to remove all remaining water from humidifier canister daily and make it dry after each usage. Refill canister with fresh distilled water before each usage. 5. Sleep hygiene with regular time in bed for at least 8 hours. 6. Precautions related to driving. No driving if feel any sleepiness. 7. I will maintain prescription for PAP supplies including mask, tube, filters. 8. Follow up visit in 2 months or earlier if patient has any problems. 9. Watching weight. Thank you very much for allowing me to participate in the management of your patient. Geo Haney MD, PhD, FAASM. Diplomat of [place] [employer], Sleep Medicine Board by [place] [employer] Outsole Splicer of [facility] [place] Objective - Vital Signs Vital Signs: Vital Signs Temp 97.3 F L 11/29/24 15:15 Pulse 70 11/29/24 15:15 Resp 16 11/29/24 15:15 BP 117/75 11/29/24 15:15 Pulse Ox 95 11/29/24 15:15 FiO2 Intake & Output 11/28/24 11/29/24 11/29/24 18:59 06:59 18:59 Weight 94.007 kg Home Medications: Home Medications Medication Instructions Recorded Confirmed Type Gabapentin 100 mg PO BID 06/11/16 02/03/24 History atenoloL [Tenormin] 50 mg PO BID #60 tab 06/15/16 11/29/24 Rx Rosuvastatin Calcium [Crestor] 10 mg PO HS 08/18/17 02/03/24 History dilTIAZem HCL [Cartia Xt] 125 mg PO DAILY 02/02/18 11/29/24 History DULoxetine HCL [Cymbalta] 60 mg PO HS 06/09/18 12/02/21 History Cholecalciferol [Vitamin D3 (25 25 mcg PO DAILY 12/02/21 12/02/21 History Mcg = 1000 Iu)] Empagliflozin [Jardiance] 10 mg PO DAILY 12/02/21 12/02/21 History Folic Acid 0.4 mg PO DAILY 12/02/21 12/02/21 History Furosemide [Lasix] 20 mg PO DAILY 12/02/21 11/29/24 History Gabapentin [Neurontin] 100 mg PO BID 12/02/21 11/29/24 History Sertraline [Zoloft] 2.5 mg PO DAILY 12/02/21 11/29/24 History Turmeric Root Extract [Turmeric] 500 mg PO DAILY 12/02/21 12/02/21 History Ubidecarenone [Co Q-10] 100 mg PO DAILY 12/02/21 12/02/21 History Vitamin B Complex 1 cap PO DAILY 12/02/21 12/02/21 History Xanax(Unknown) 1 tab PO DIRECTED PRN 12/02/21 02/03/24 History Zinc 50 mg PO DAILY 12/02/21 12/02/21 History lisinopriL [Zestril] 2.5 mg PO DAILY 12/02/21 11/29/24 History sitaGLIPtin [Januvia] 100 mg PO DAILY 12/02/21 02/03/24 History Bacitracin/Polymyx Oint 1 applic TOPICAL BID #30 gm 08/02/24 Rx [Polysporin Oint] Apixaban [Eliquis] 2.5 mg PO BID 11/29/24 11/29/24 History Diphenoxylate HCl/Atropine 2.5 mg 11/29/24 History [Diphenoxylate HCl/Atropine 2.5-0.025]
== END ==
LOC: 3 N SLEEP 14:54
PROVIDERS: ATTEND Internal Medicine
DX: E11.9 Type 2 diabetes mellitus without complications (principal); G47.33 Obstructive sleep apnea (adult) (pediatric); I10 Essential (primary) hypertension; E78.5 Hyperlipidemia, unspecified; Z96.653 Presence of artificial knee joint, bilateral; Z86.79 Personal history of other diseases of the circulatory system; Z86.59 Personal history of other mental and behavioral disorders; Z87.891 Personal history of nicotine dependence; Z88.8 Allergy status to other drugs, medicaments and biological substances; Z88.1 Allergy status to other antibiotic agents; Z88.0 Allergy status to penicillin; Z88.2 Allergy status to sulfonamides; Z88.5 Allergy status to narcotic agent
CPT/HCPCS: 99212

== ENCOUNTER → 2025-01-11 | Outpatient (CLI) | payer MEDICARE ==
[2025-01-11 15:37] VITALS: BP 111/74; PULSE 88; RESP 16; TEMP 98.2
--- NOTE | 2025-01-11 17:28 | P.PROGSL ---
Subjective DATE: 01/11/2025 FOLLOW UP VISIT. Patient with obstructive sleep apnea hypopnea syndrome return to sleep center for follow-up visit. Information from previous visit have been reviewed. Patient is using PAP equipment every night for the whole night, getting PAP supplies in time. The patient does not have significant problems with the mask, PAP unit and humidification. [place] sleepiness scale is 10, which is borderline. I checked information from PAP unit. PAP unit pressure 7-12 average 11 cm H2O. Usage is 100% for more then 4 hours, average 9.2 hours per night. Leak is increased to 64 l/m. Apnea Hypopnea Index is 4.5, which is normal. MEDICATIONS have been reviewed, please see below. During physical exam: GENERAL: A pleasant patient without any distress. VITAL SIGNS: Please see below, weight is 207 lbs. HEENT: PERRLA, EOMI.low position of soft palate, [place] 3. NECK: Supple. No JVD. LUNGS: Clear to percussion and to auscultation. Good air exchange. No wheezing or rhonchi. HEART: S1, S2 regular. ABDOMEN: Soft and nontender.[] EXTREMITIES: No clubbing or cyanosis. COD CLERK: Awake, alert, and oriented x3. No focal deficit. Impressions: 1. Obstructive sleep apnea-hypopnea syndrome. Patient demonstrated great compliance with treatment, benefiting from treatment. 2. Hypertension. 3. History of atrial fibrillation. 4. Diabetes mellitus. 5. Hyperlipidemia. 6. History of REM sleep behavior disorder, no complaints at the present time. 7. Status post bilateral knee replacement. Plan: 1. Continue using PAP equipment every night for the whole night. To replace mask. 2. Sleep hygiene with regular time in bed for at least 7.5-8 hours 3. PAP unit should stay lower then position of the head. 4. Advised patient to remove all remaining water from humidifier canister daily and make it dry after each usage. Refill canister with fresh distilled water before each usage. 5. Watching weight. 6. Precautions related to driving. No driving if feel any sleepiness. 7. I will maintain prescription for PAP supplies including mask, tube, filters. 8. Follow up visit in 8 months or earlier if patient has any problems. Thank you very much for allowing me to participate in the management of your patient. Geo Haney MD, PhD, FAASM. Diplomat of [place] [employer], Sleep Medicine Board by [place] [employer] Staff Research Scientist of [facility] [place] Objective - Vital Signs Vital Signs: Vital Signs Temp 98.2 F 01/11/25 15:36 Pulse 88 01/11/25 15:36 Resp 16 01/11/25 15:36 BP 111/74 01/11/25 15:36 Pulse Ox 94 L 01/11/25 15:36 FiO2 Intake & Output 01/10/25 01/11/25 01/11/25 18:59 06:59 18:59 Weight 93.894 kg Home Medications: Home Medications Medication Instructions Recorded Confirmed Type Gabapentin 100 mg PO BID 06/11/16 02/03/24 History atenoloL [Tenormin] 50 mg PO BID #60 tab 06/15/16 01/11/25 Rx Rosuvastatin Calcium [Crestor] 10 mg PO HS 08/18/17 02/03/24 History dilTIAZem HCL [Cartia Xt] 125 mg PO DAILY 02/02/18 01/11/25 History DULoxetine HCL [Cymbalta] 60 mg PO HS 06/09/18 12/02/21 History Cholecalciferol [Vitamin D3 (25 25 mcg PO DAILY 12/02/21 01/11/25 History Mcg = 1000 Iu)] Empagliflozin [Jardiance] 10 mg PO DAILY 12/02/21 12/02/21 History Folic Acid 0.4 mg PO DAILY 12/02/21 12/02/21 History Furosemide [Lasix] 20 mg PO DAILY 12/02/21 11/29/24 History Gabapentin [Neurontin] 100 mg PO BID 12/02/21 01/11/25 History Sertraline [Zoloft] 2.5 mg PO DAILY 12/02/21 01/11/25 History Turmeric Root Extract [Turmeric] 500 mg PO DAILY 12/02/21 01/11/25 History Ubidecarenone [Co Q-10] 100 mg PO DAILY 12/02/21 01/11/25 History Vitamin B Complex 1 cap PO DAILY 12/02/21 01/11/25 History Xanax(Unknown) 1 tab PO DIRECTED PRN 12/02/21 01/11/25 History Zinc 50 mg PO DAILY 12/02/21 12/02/21 History lisinopriL [Zestril] 2.5 mg PO DAILY 12/02/21 01/11/25 History sitaGLIPtin [Januvia] 100 mg PO DAILY 12/02/21 02/03/24 History Bacitracin/Polymyx Oint 1 applic TOPICAL BID #30 gm 08/02/24 Rx [Polysporin Oint] Apixaban [Eliquis] 2.5 mg PO BID 11/29/24 01/11/25 History Diphenoxylate HCl/Atropine 2.5 mg 11/29/24 History [Diphenoxylate HCl/Atropine 2.5-0.025] Glimepiride 2 mg PO BID 01/11/25 01/11/25 History
== END | disposition home or self-care (01) ==
LOC: 3 N SLEEP 15:25
PROVIDERS: ATTEND Internal Medicine
DX: G47.33 Obstructive sleep apnea (adult) (pediatric) (principal); I10 Essential (primary) hypertension; E11.9 Type 2 diabetes mellitus without complications; E78.5 Hyperlipidemia, unspecified; Z88.0 Allergy status to penicillin; Z88.2 Allergy status to sulfonamides; Z88.1 Allergy status to other antibiotic agents; Z88.5 Allergy status to narcotic agent; Z88.8 Allergy status to other drugs, medicaments and biological substances; Z87.891 Personal history of nicotine dependence; Z96.653 Presence of artificial knee joint, bilateral; Z86.69 Personal history of other diseases of the nervous system and sense organs; Z86.79 Personal history of other diseases of the circulatory system
CPT/HCPCS: 99212